=== PATIENT | female | born 1945 | race Two or more races ===

== ENCOUNTER 2020-01-29 13:03 | Outpatient (REF) | payer MEDICARE, SELFPAY ==
--- NOTE | 2020-01-29 13:27 | MM_ITS ---
EXAMINATION: MM SCREENING DIGITAL BREAST TOMOSYNTHESIS, BILATERAL CLINICAL INFORMATION: Screening. Asymptomatic. The lifetime risk of breast cancer based on the Tyrer-Cuzick Model is under 2%. COMPARISON: Mammography: 02/10/2018, 02/05/2017 TECHNIQUE: Digital breast tomosynthesis is performed in both the craniocaudal and mediolateral oblique views along with computer-aided detection (CAD). Synthesized 2D images are generated from the tomosynthesis. Additional left MLO and exaggerated left CC views are provided. FINDINGS: There are scattered areas of fibroglandular density (ACR BI-RADS breast composition Category b). There are no significant masses, abnormal calcifications, or other abnormalities. There is a pacemaker generator overlying and obscuring the upper left breast and axilla on the MLO views. Scattered bilateral vascular and some punctate round calcifications are again seen in both breasts. No significant changes. MM/MM tomosynthesis screening BI IMPRESSION: No significant changes from prior studies. ASSESSMENT: BI-RADS 2: Benign RECOMMENDATION: Routine annual mammography screening. This patient's information was entered into a reminder system with a target due date for their next mammogram.
== END 2020-01-29 13:04 | disposition home or self-care (01) ==
LOC: HO.MAMMO 13:03
PROVIDERS: PCP Nurse Practitioner Family; Visit Provider Nurse Practitioner Family
DX: Z12.31 Encounter for screening mammogram for malignant neoplasm of breast (principal)
CPT/HCPCS: 77063; 77067

== ENCOUNTER 2020-02-20 07:49 | Outpatient (REF) | payer MEDICARE, SELFPAY | END 2020-02-20 07:50 | disposition home or self-care (01) | LOC: HO.LAB 07:49 | PROVIDERS: PCP Nurse Practitioner Family; Visit Provider Internal Medicine | DX: Z20.828 Contact with and (suspected) exposure to other viral communicable diseases (principal) | CPT/HCPCS: C9803; U0003 ==

== ENCOUNTER 2020-05-31 10:08 | Outpatient (REF) | payer MEDICARE, SELFPAY ==
[2020-05-31 10:33] LABS: MANUAL DIFF FLAG NO
[2020-05-31 10:38] LABS: Basophils Percent Auto 0.3 % (0-2); Eosinophils Absolute Auto 0.1 X10*3/uL (0.0-0.4); Eosinophils Percent Auto 0.8 % (0-4); Hemoglobin 11.5 g/dl (12.0-16.0); Imm Gran Abs Auto 0.01 X10*3/uL (0.00-0.03); Imm Gran Pct Auto 0.2 % (0.0-0.4); Lymphocytes Absolute Auto 2.5 X10*3/uL (1.2-4.9); Lymphocytes Percent Auto 38.8 % (20-40); Mean Corpuscular HGB Conc 31.1 g/dl (31.0-35.0); Mean Corpuscular Hemoglobin 29.3 pg (27.0-33.0); Mean Corpuscular Volume 94.1 fL (80-98); Monocytes Absolute Auto 0.5 X10*3/uL (0.1-1.2); Monocytes Percent Auto 7.2 % (2-11); Neutrophils Absolute Auto 3.4 X10*3/uL (2.0-8.3); Neutrophils Percent Auto 52.7 % (45-73); Platelet Count 216 X10*3/uL (160-400); Red Blood Count 3.93 X10*6/uL (4.20-5.50); Red Cell Distribution Width 11.9 % (11.0-16.0); White Blood Count 6.4 X10*3/uL (4.8-10.8)
[2020-05-31 11:55] LABS: Glucose Urine UA NEG (NEG); Leukocyte Esterase Urine NEG (NEG); Nitrite Urine NEG (NEG); PH 5.5 (5.0-8.0); Specific Gravity - Urine 1.025 (1.005-1.025); Urine Blood NEG (NEG); Urine Ketones NEG (NEG); Urine Protein NEG (NEG-TRACE)
[2020-05-31 11:59] LABS: Appearance Urine CLEAR; Color Urine YELLOW
[2020-05-31 12:12] LABS: RBC Urine 0 /HPF (0); WBC Urine 0 /HPF (0-4)
[2020-05-31 12:13] LABS: Mucus Urine 1+ /LPF; Squamous Epithelial Cell Urine 1+ /LPF
[2020-05-31 12:32] LABS: Anion Gap 16 (12-20); Blood Urea Nitrogen 16 mg/dL (9-16); Carbon Dioxide 24 mmol/L (22-29); Chloride 109 mmol/L (96-108); Estimated Glomerular Filt Rate 52; Glucose Fasting 156 mg/dL (60-99); Potassium 5.4 mmol/L (3.3-5.1); Sodium 144 mmol/L (135-145)
== END 2020-05-31 10:09 | disposition home or self-care (01) ==
LOC: HO.LAB 10:08
PROVIDERS: PCP Nurse Practitioner Family; Visit Provider Nurse Practitioner Family
DX: M15.3 Secondary multiple arthritis (principal); E11.9 Type 2 diabetes mellitus without complications; N39.0 Urinary tract infection, site not specified
CPT/HCPCS: 36415; 80048; 81001; 82043; 85025

== ENCOUNTER 2021-01-30 15:37 | Outpatient (REF) | payer MEDICARE, SELFPAY ==
--- NOTE | ~2021-01-30 | XR_ITS ---
EXAMINATION: XR FOOT, RIGHT CLINICAL INFORMATION: M79.89 - Other specified soft tissue disorders. Pain mid dorsal foot. COMPARISON: Radiographs right ankle 06/30/2013 TECHNIQUE: AP, lateral, and oblique views of the right foot. FINDINGS: There is no visible acute or healing fracture, dislocation, or destructive process. There is long segment distal Achilles with benign mineralization 2.7 cm in length consistent with calcific tendinosis. There is short calcification in region of proximal plantar fascia as well. The midfoot and forefoot shows no focal joint narrowing or erosive changes. There is a small bunion adjacent to medial side first MTP. XR/XR foot RT 2V IMPRESSION: 1. No fracture or destructive process. 2. 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
== END 2021-01-30 15:38 | disposition home or self-care (01) ==
LOC: HO.XRAY 15:37
PROVIDERS: PCP Physician Assistant; Visit Provider Physician Assistant
DX: M79.89 Other specified soft tissue disorders (principal)
CPT/HCPCS: 73620

== ENCOUNTER 2021-04-11 15:11 | Outpatient (REF) | payer MEDICARE, SELFPAY ==
--- NOTE | ~2021-04-11 | MM_ITS ---
EXAMINATION: MM SCREENING DIGITAL BREAST TOMOSYNTHESIS, BILATERAL CLINICAL INFORMATION: Screening. Asymptomatic. The lifetime risk of breast cancer based on the Tyrer-Cuzick Model is 4%. COMPARISON: Mammography: 01/29/2020, 02/10/2018, 02/05/2017 TECHNIQUE: Digital breast tomosynthesis is performed in both the craniocaudal and mediolateral oblique views along with computer-aided detection (CAD). Synthesized 2D images are generated from the tomosynthesis. Additional left MLO view is provided. FINDINGS: There are scattered areas of fibroglandular density (ACR BI-RADS breast composition Category b). There are no significant masses, abnormal calcifications, or other abnormalities. Parenchymal pattern is similar to prior studies. There is no developing density or architectural abnormality. There is a pacemaker generator overlying the left axilla on initial MLO view. Again, there are numerous bilateral vascular and punctate and some ductal secretory calcifications. The visualized axilla are unremarkable. No significant changes. Small dermal lesion again noted overlying the posterior medial right breast. MM/MM tomosynthesis screening BI IMPRESSION: No mammographic evidence of malignancy. ASSESSMENT: BI-RADS 2: Benign RECOMMENDATION: Routine annual mammography screening. This patient's information was entered into a reminder system with a target due date for their next mammogram.
== END 2021-04-11 15:12 | disposition home or self-care (01) ==
LOC: HO.MAMMO 15:11
PROVIDERS: PCP Physician Assistant; Visit Provider Physician Assistant
DX: Z12.31 Encounter for screening mammogram for malignant neoplasm of breast (principal)
CPT/HCPCS: 77063; 77067

== ENCOUNTER 2021-07-28 09:01 | Outpatient (REF) | payer OTHER, SELFPAY ==
[2021-07-28 09:45] LABS: Hemoglobin 11.9 g/dl (12.0-16.0); Mean Corpuscular HGB Conc 33.1 g/dl (31.0-35.0); Mean Corpuscular Hemoglobin 29.9 pg (27.0-33.0); Mean Corpuscular Volume 90.5 fL (80.0-98.0); Mean Platelet Volume 10.2 fL (9.4-12.3); Platelet Count 195 X10*3/uL (160-400); Red Blood Count 3.98 X10*6/uL (4.20-5.50); Red Cell Distribution Width 11.9 % (11.0-16.0); White Blood Count 5.6 X10*3/uL (4.8-10.8)
[2021-07-28 09:53] LABS: Estimated Average Glucose 258 mg/dL; Hemoglobin A1c % 10.6 %
[2021-07-28 10:08] LABS: Alanine Aminotransferase 12 U/L (0-31); Albumin Level 4.3 g/dL (3.5-5.0); Alkaline Phosphatase 66 U/L (39-117); Anion Gap 12 (12-20); Aspartate Amino Transferase 12 U/L (5-31); Bilirubin Total 0.9 mg/dL (0.0-1.0); Blood Urea Nitrogen 16 mg/dL (9-16); Calcium 9.8 mg/dL (8.4-10.2); Carbon Dioxide 25 mmol/L (22-29); Chloride 107 mmol/L (96-108); Cholesterol 128 mg/dL; Estimated Glomerular Filt Rate 50; Glucose Fasting 221 mg/dL (60-99); HDL Cholesterol 40 mg/dL; Iron 76 mcg/dL (30-160); LDL Cholesterol Calculated 50 mg/dl; Percent Iron Saturation 19 % (15-50); Potassium 4.8 mmol/L (3.3-5.1); Sodium 139 mmol/L (135-145); Total Iron Binding Capacity 408 mcg/dL (228-428); Triglycerides 190 mg/dL; Unsaturated Iron Binding 332 ug/dL
[2021-07-28 10:29] LABS: TSH reflex Free T4 0.63 uIU/mL (0.32-4.0)
[2021-07-28 11:37] LABS: Creatinine Urine 233.58 mg/dL; Microalbum/Creatinine Ratio Ur 63.3 ug/mg cr
== END 2021-07-28 09:02 | disposition home or self-care (01) ==
LOC: HO.LAB 09:01
PROVIDERS: Absent Provider Nurse Practitioner Family; PCP Physician Assistant; Visit Provider Physician Assistant
DX: D50.9 Iron deficiency anemia, unspecified (principal); E11.9 Type 2 diabetes mellitus without complications; E78.2 Mixed hyperlipidemia; Z79.4 Long term (current) use of insulin
CPT/HCPCS: 36415; 80053; 80061; 82043; 83036; 83540; 84443; 85027

== ENCOUNTER 2022-09-10 11:03 | Outpatient (REF) | payer OTHER, SELFPAY ==
[2022-09-10 12:08] LABS: Hematocrit 36.7 % (37.0-47.0); Hemoglobin 11.8 g/dl (12.0-16.0); Mean Corpuscular HGB Conc 32.2 g/dl (31.0-35.0); Mean Corpuscular Hemoglobin 29.3 pg (27.0-33.0); Mean Corpuscular Volume 91.1 fL (80.0-98.0); Mean Platelet Volume 10.8 fL (9.4-12.3); Platelet Count 212 X10*3/uL (160-400); Red Blood Count 4.03 X10*6/uL (4.20-5.50); Red Cell Distribution Width 12.3 % (11.0-16.0)
[2022-09-10 12:36] LABS: Alanine Aminotransferase 12 U/L (0-31); Albumin Level 4.6 g/dL (3.5-5.0); Alkaline Phosphatase 62 U/L (39-117); Anion Gap 17 (12-20); Aspartate Amino Transferase 16 U/L (5-31); Blood Urea Nitrogen 24 mg/dL (9-16); Calcium 10.6 mg/dL (8.4-10.2); Carbon Dioxide 20 mmol/L (22-29); Chloride 110 mmol/L (96-108); Cholesterol 124 mg/dL; Estimated Glomerular Filt Rate 41; Glucose Fasting 160 mg/dL (60-99); HDL Cholesterol 48 mg/dL; LDL Cholesterol Calculated 48 mg/dl; Potassium 5.6 mmol/L (3.3-5.1); Sodium 141 mmol/L (135-145); Total Protein 7.6 g/dL (6.5-8.0); Triglycerides 144 mg/dL
[2022-09-10 12:49] LABS: TSH reflex Free T4 0.53 uIU/mL (0.32-4.0)
== END 2022-09-10 11:04 | disposition home or self-care (01) ==
LOC: HO.LAB 11:03
PROVIDERS: PCP Physician Assistant; Visit Provider Physician Assistant
DX: E11.65 Type 2 diabetes mellitus with hyperglycemia (principal); I10 Essential (primary) hypertension; E78.2 Mixed hyperlipidemia; Z79.4 Long term (current) use of insulin
CPT/HCPCS: 36415; 80053; 80061; 82043; 84443; 85027

== ENCOUNTER 2022-09-27 14:25 | Outpatient (REF) | payer OTHER, SELFPAY ==
[2022-09-27 16:39] LABS: Anion Gap 13 (12-20); Blood Urea Nitrogen 20 mg/dL (9-16); Calcium 9.9 mg/dL (8.4-10.2); Carbon Dioxide 26 mmol/L (22-29); Chloride 106 mmol/L (96-108); Estimated Glomerular Filt Rate 50; Glucose Random 229 mg/dL (60-115); Potassium 4.7 mmol/L (3.3-5.1); Sodium 140 mmol/L (135-145)
== END 2022-09-27 14:26 | disposition home or self-care (01) ==
LOC: HO.LAB 14:25
PROVIDERS: PCP Physician Assistant; Visit Provider Physician Assistant
DX: E87.5 Hyperkalemia (principal)
CPT/HCPCS: 36415; 80048

== ENCOUNTER → 2022-11-07 11:15 | Outpatient (BNV) | payer OTHER, SELFPAY | PROVIDERS: PCP Physician Assistant; Visit Provider Radiology Diagnostic Radiology | DX: Z12.31 Encounter for screening mammogram for malignant neoplasm of breast (principal) | CPT/HCPCS: 77063; 77067 ==

== ENCOUNTER 2022-11-07 11:18 | Outpatient (REF) | payer OTHER, SELFPAY ==
--- NOTE | ~2022-11-07 | MM_ITS ---
EXAMINATION: MM SCREENING DIGITAL BREAST TOMOSYNTHESIS, BILATERAL CLINICAL INFORMATION: Screening. Asymptomatic. COMPARISON: Mammography: This study is compared with prior exams dating back to 2017. TECHNIQUE: Digital breast tomosynthesis is performed in both the craniocaudal and mediolateral oblique views along with computer-aided detection (CAD). Synthesized 2D images are generated from the tomosynthesis. FINDINGS: There are scattered areas of fibroglandular density (ACR BI-RADS breast composition Category b). In the 12:00 position of the right breast, anterior depth, is a small group of calcification for which additional mammographic imaging magnification is advised. There are no other significant findings in the remainder of the right breast. In the left breast, there are no significant masses, abnormal calcifications, or other abnormalities. MM/MM tomosynthesis screening BI IMPRESSION: Right breast calcifications warrant additional mammographic imaging magnification. No mammographic signs of malignancy left breast. ASSESSMENT: BI-RADS BI-RADS 0 - Incomplete: Needs additional Imaging. RECOMMENDATION: Additional views of the right breast Radiology department staff will contact the patient for additional imaging. Additional Imaging required This examination should not preclude the clinical evaluation of a suspicious palpable abnormality. This patient's information was entered into a reminder system with a target due date for their next mammogram.
== END 2022-11-07 11:19 | disposition home or self-care (01) ==
LOC: HO.MAMMO 11:18
PROVIDERS: PCP Physician Assistant; Visit Provider Physician Assistant
DX: Z12.31 Encounter for screening mammogram for malignant neoplasm of breast (principal)
CPT/HCPCS: 77063; 77067

== ENCOUNTER 2022-11-26 08:41 | Outpatient (REF) | payer OTHER, SELFPAY ==
--- NOTE | ~2022-11-26 | MM_ITS ---
EXAMINATION: MM DIAGNOSTIC DIGITAL MAMMOGRAPHY, RIGHT CLINICAL INFORMATION: Follow-up for microcalcifications seen upper anterior right breast on screening examination. COMPARISON: Mammography: 11/07/2022. 04/11/2021. Priors dating back to 2014. TECHNIQUE: Digital mammography is performed in the following views: 2-D spot magnification right CC and ML views. FINDINGS: There are scattered areas of fibroglandular density (ACR BI-RADS breast composition Category b). There is a small tight grouping of punctate round calcifications, very faint, in the upper medial quadrant of the right breast, anterior one third. They lie Approximately 4 cm from the nipple. No significant pleomorphism, branching, or linear forms. No evidence of ductal distribution. In retrospect, these can be seen dating back to 2015 although are so small and faint, exact comparison is difficult without old magnification views. These have a probably benign morphology. There are extensive vascular calcifications throughout the right breast. No new suspicious finding. Results were provided to the patient at time of visit by the technologist. MM/MM added views RT IMPRESSION: Small extremely fine punctate grouped microcalcifications in the upper medial right breast approximate 4 cm from the nipple, with a probably benign morphology. Six-month interval follow-up diagnostic mammography of the right breast recommended to include standard magnification views. ASSESSMENT: BI-RADS BI-RADS 3 - Probably benign finding(s) - 6 month follow-up suggested RECOMMENDATION: 6 Month F/U This patient's information was entered into a reminder system with a target due date for their next mammogram.
== END 2022-11-26 08:42 | disposition home or self-care (01) ==
LOC: HO.MAMMO 08:41
PROVIDERS: PCP Physician Assistant; Visit Provider Physician Assistant
DX: R92.1 Mammographic calcification found on diagnostic imaging of breast (principal)
CPT/HCPCS: 77065

== ENCOUNTER → 2022-11-26 09:00 | Outpatient (BNV) | payer OTHER, SELFPAY | PROVIDERS: PCP Physician Assistant; Visit Provider Radiology Diagnostic Radiology | DX: R92.8 Other abnormal and inconclusive findings on diagnostic imaging of breast (principal) | CPT/HCPCS: 77065 ==

== ENCOUNTER 2023-03-18 10:35 | Outpatient (AMB) | payer OTHER, SELFPAY ==
[2023-03-18 10:48] VITALS: BP 132/62; PULSE 64; RESP 17; BMI 18.9
--- NOTE | 2023-03-18 10:48 | MHC.PC.OV ---
Vital Signs 03/18/23 10:48 Height 4 ft 11 in Weight 93 lb 8 oz BMI 18.9 BP 132/62 Blood Pressure Location Lt brachial Position Sitting Respiration 17 Pulse 64 Pulse Source Palpation Intake Visit Reasons: F/U DM Intake Note: Patient is here to follow up on DMII. Pt's daughter requested the Placard form. Hot Dip Tinning Supervisor Required: No Accompanied by: Daughter Allergies Iodinated Contrast Media [IV CONTRAST] Allergy (Intermediate, Verified 03/18/23 11:07) SHORTNESS OF BREATH latex [LATEX] Allergy (Intermediate, Verified 03/18/23 11:07) RASH Medication List - Last Reconciled 03/18/23 by Que Good PA-C acetaminophen ER 650 mg PO Q6H PRN 30 days albuterol sulfate 90 mcg/actuation 2 puffs PO Q4-6H PRN aspirin 81 mg PO DAILY blood sugar diagnostic (FreeStyle Lite Strips) TESTING ONCE A DAY blood-glucose meter (FreeStyle Lite Meter kit) As directed clopidogrel 75 mg PO DAILY cyclobenzaprine 10 mg PO BEDTIME 30 days [diabetic shoes with inserts As directed] dicyclomine 20 mg PO TID PRN gabapentin 300 mg PO TID 30 days insulin glargine (Lantus Solostar U-100 Insulin) 44 units (0.44 mL) subcut QAM 30 days lancets (FreeStyle Lancets) testing once per day lisinopril 5 mg PO DAILY metformin 1,000 mg PO BIDWMEAL metoprolol succinate ER 12.5 mg (1/2 x 25 mg) PO DAILY 90 days omega-3 fatty acids (Fish Oil Concentrate) 1,000 mg PO DAILY pen needle, diabetic (BD Ultra-Fine Aylin Pen Needle) test once per day simvastatin 40 mg PO BEDTIME Tobacco use date assessed: 03/18/23 Fall risk assessment: No Falls in past year Last assessed Fall Risk: 03/18/23 Dental Screening Dental Screen Date: 03/18/23 Did you have a dental visit in the last 12 months?: No Did you have a dental problem in the last 6 months where you did not have access to dental care?: No Was dental information given to patient?: Patient declined HPI F/U DM HPI Details Patient is a 77 year female here today for follow-up visit.? Patient is Cypriot-speaking only to which most of history came from daughter. ?Patient has a past medical history significant for hypertension, type 2 diabetes, coronary artery disease, ICD placed, hyperlipidemia. DMII: Reports Blood sugars have been stable at home. Today's A1c at 7.6 which has improved from previous. Her insulin doses have been increased. No reports of hypoglycemic events. .. HTN: Does check BP at home and report blood pressure have been stable.? Denies any chest discomfort, shortness of breath, palpitations or headaches. She does have microalbuminuria. She is followed by elevating grader operator .. CAD:? Patient is followed by dog food shredder operator at [facility] ( Dr Pruitt) . Does have a ICD placement? .Continues on beta-latoya, statin and dual anti-platelet therapy.? No reports of overt bleeding [facility] Medical History Diabetes Recurrent UTI Osteoarthritis Surgical History H/O heart artery stent History of pacemaker H/O angioplasty History of bilateral cataract extraction S/P trigger finger release History of tubal ligation Family History Father Past heart attack Mother Throat cancer Smoker Brother Past heart attack Brother Lung cancer Daughter Hypertension CHF (congestive heart failure) Son Diabetes Social History Housing: Apartment Alcohol intake: never Patient Tobacco Use Status: Never used Tobacco Tobacco use type: Cigarette e-Cigarette/Vaping Use: Never Used Second Hand Smoke Exposure: No service: No Current occupational status: disabled Cognitive needs: Yes Hearing needs: No Vision needs: No Questionnaire PHQ-9 Over the last 2 weeks, how often have you been bothered by any of the following problems? 1. Little interest or pleasure in doing things: not at all 2. Feeling down, depressed, or hopeless: not at all 3. Trouble falling or staying asleep, or sleeping too much: not at all 4. Feeling tired or having little energy: not at all 5. Poor appetite or overeating: not at all 6. Feeling bad about yourself - or that you are a failure or have let yourself or your family down: not at all 7. Trouble concentrating on things, such as reading the newspaper or watching television: not at all 8. Moving or speaking so slowly that other people could have noticed. Or the opposite - being so fidgety or restless that you have been moving around a lot more than usual: not at all 9. Thoughts that you would be better off or of hurting yourself in some way: not at all Total score: 0 Depression Screening Interpretation: Negative Depression Screening Done: Yes 48054 - PHQ-9 Billing: Yes Source: Developed by Drs. Josh Mensah, Rebeca Caruso, Elan Akhtar and colleagues, with an educational ha from [facility]. Thrive Questionnaire Date Thrive assessed: 03/18/23 I am a: Patient What is your living situation today?: I have a steady place to live Within the past 12 months, did the food you bought not last and you didn't have the money to get more?: Never true Within the past 12 months, did you worry whether your food would run out before you got money to buy more?: Never true Do you have trouble paying for medicines?: No Do you have trouble getting transportation to medical appointments?: No Do you have trouble paying your heating and electricity bill?: No Do you have trouble taking care of your child, family member or friend?: No Do you have trouble with day-to-day activities such as bathing, preparing meals, shopping, managing finances, etc.?: No Are you currently unemployed and looking for a job?: No Are you interested in more education?: No Please select the resources that you would like help with: None Currently or been in a relationship where the following occur: no concerns reported AUDIT C Alcohol Use Questionnaire (AUDIT-C) 1. How often do you have a drink containing alcohol?: Never 3. How often do you have six or more drinks on one occasion?: Never Total Score: 0 KAI-7 AMB Questionnaire KAI-7 Date KAI - 7 assessed: 03/18/23 Feeling nervous, anxious, or on edge: 0 = Not at all Not being able to stop or control worryin = Not at all Worrying too much about different things: 0 = Not at all Trouble relaxin = Not at all Being so restless that it is hard to sit still: 0 = Not at all Becoming easily annoyed or irritable: 0 = Not at all Feeling afraid as if something awful might happen: 0 = Not at all Total KAI-7 score (0-4 normal; 5-9 mild; 10-14 moderate; 15-21 severe): 0 Source: Developed by Drs. Josh Mensah, Rebeca Caruso, Elan Akhtar and colleagues, with an educational ha from [facility]. KAI-7 Assessment Billing KAI-7 Assessment Tool: KAI-7 Assessment 12790 Review of Systems Const Denies headache(s) Eyes Denies loss of vision ENT Denies vertigo, Denies dizziness, Denies headache(s) and Denies sore throat Card Denies chest pain, Denies leg edema and Denies lightheadedness Resp Denies cough, Denies hemoptysis and Denies wheezing GI Denies abdominal pain, Denies melena, Denies constipation, Denies diarrhea and Denies vomiting Denies urinary frequency, Denies dysuria and Denies urinary urgency Musc Denies arthralgias, Denies joint swelling, Denies numbness and Denies tingling Neuro Denies Abnormal speech present, Denies behavioral changes, Denies vertigo, Denies dizziness, Denies headache(s), Denies loss of vision, Denies memory loss, Denies numbness and Denies tingling Psych Denies anxiety, Denies behavioral changes, Denies depression, Denies memory loss and Denies panic attacks [place]win/Lymph Denies easy bleeding and Denies easy bruising Aller/Immun Denies wheezing Physical exam (Primary Care) Vital Signs: Last Vital Signs Pulse 64 03/18/23 10:48 Resp 17 03/18/23 10:48 BP 132/62 03/18/23 10:48 BMI result Body Mass Index 18.9 Tobacco/Smoking Status: Tobacco use Status Tobacco use date assessed 03/18/23 03/18/23 11:01 Patient Tobacco Use Status Never used Tobacco 03/18/23 10:48 Tobacco use type Cigarette 03/18/23 10:48 e-Cigarette/Vaping Use Never Used 03/18/23 10:48 PHQ-9: PHQ-9 Score PHQ-9: Total score 0 03/18/23 11:01 Depression Screening Interpretation: Negative Thrive Assessment: Date of Thrive Assessment Date Thrive assessed 03/18/23 03/18/23 10:58 Currently or been in a relationship where the following occur: no concerns reported Const General: healthy appearing, no acute distress, alert and awake Nutritional Appearance: well nourished Orientation/consciousness: oriented to person, oriented to place and oriented to time HENMT Ears: TM's normal bilaterally General nose exam: Normal nasal mucous membranes and turbinates present Eyes Conjunctivae: conjunctivae normal Sclerae: sclerae normal Pupils: Equal, round and reactive pupils present Neck Neck: Yes no lymphadenopathy and Yes no JVD Thyroid: Thyroid normal Carotids: no bruits Resp Effort & Inspection: normal respiratory effort and not tachypneic Auscultation: no crackles, no rales, no rhonchi and no wheezes Cardio Rate: regular rate Rhythm: regular rhythm Heart sounds: no murmurs and normal S1 and S2 GI Palpation (GI): Soft to palpation, nontender, no hepatomegaly and no splenomegaly Auscultation: normal bowel sounds Skin General skin exam: no rashes or lesions noted and dry skin Neuro General: oriented to person, oriented to place and oriented to time Cranial nerves: Yes Equal, round and reactive pupils present Speech: No Abnormal speech present Gait exam (Neuro): Normal gait present Motor exam (neuro): no tremor noted Extrem Right upper extremity: full ROM Left upper extremity: full ROM Right lower extremity: full ROM; no edema Left lower extremity: full ROM; no edema Psych Mental Status: mental status grossly normal Speech and movement: Normal speech and movement present Affect: normal affect Attitude: cooperative Thought process: Normal thought process present Results AMB Hemoglobin A1c AMB Hemoglobin A1c 7.6 % Last Edit by BLAYNE Contreras on 03/18/23 11:08 Assessment and Plan Assessment & Plan (1) DMII (diabetes mellitus, type 2): Code(s): E11.9 - Type 2 diabetes mellitus without complications Qualifiers: Diabetes mellitus mimeograph operator insulin use: with mimeograph operator use Diabetes mellitus complication status: with hyperglycemia Qualified Code(s): E11.65 - Type 2 diabetes mellitus with hyperglycemia; Z79.4 - device engineer (current) use of insulin Plan: Patient's diabetes about the control with A1c today 7.6 which has improved from previous. Patient has noted some weight loss since last office visit, could be due to high-dose metformin thus will reduce her dose to 500 b.i.d.. Goal A1c is to be below 7.5 due to Agent correlated ease. (2) HLD (hyperlipidemia): Code(s): E78.5 - Hyperlipidemia, unspecified Qualifiers: Hyperlipidemia type: mixed hyperlipidemia Qualified Code(s): E78.2 - Mixed hyperlipidemia Plan: Patient's most recent fasting lipid panel acceptable with LDL below 70. Continues on statin therapy without side effect. Goal LDL to be below 70 (3) CAD (coronary artery disease): Code(s): I25.10 - Atherosclerotic heart disease of [place] coronary artery without angina pectoris Qualifiers: Coronary Disease-Associated Artery/Lesion type: [place] artery [place] vs. transplanted heart: [place] heart Associated angina: without angina Qualified Code(s): I25.10 - Atherosclerotic heart disease of [place] coronary artery without angina pectoris Plan: Patient followed by Cardiology annually. Continues on dual anti-platelet therapy and statin therapy with goal LDL to be below 70 (4) ICD (implantable cardioverter-defibrillator) in place: Code(s): Z95.810 - Presence of automatic (implantable) cardiac defibrillator Plan: Again patient followed by Cardiology annually in gets her diffuse related checked. Orders: Orders AMB Hemoglobin A1c Today E11.9 - Type 2 diabetes mellitus without complications Comprehensive [place]. Panel Fast Today I10 - Essential (primary) hypertension IRON PROFILE Today D50.9 - Iron deficiency anemia, unspecified Lipid Panel Today E78.2 - Mixed hyperlipidemia Microalbumin, Random (w Creat) Today I10 - Essential (primary) hypertension Complete Blood Count no Diff Today D50.9 - Iron deficiency anemia, unspecified Medications: New nitroglycerin do not exceed 3 doses per episode 0.4 mg sublingual Q5M 30 days PRN 10 tabs 0RF chest pain I25.10 - Atherosclerotic heart disease of [place] coronary artery without angina pectoris Coding Level of Care Code Est Pt Level 4 (99952) Diagnoses Type 2 diabetes mellitus with hyperglycemia, with long-term current use of insulin E11.65; Z79.4 Diabetes mellitus mimeograph operator insulin use: with mimeograph operator use Diabetes mellitus complication status: with hyperglycemia Mixed hyperlipidemia E78.2 Hyperlipidemia type: mixed hyperlipidemia Coronary artery disease involving [place] coronary artery of [place] heart without angina pectoris I25.10 Coronary Disease-Associated Artery/Lesion type: [place] artery [place] vs. transplanted heart: [place] heart Associated angina: without angina ICD (implantable cardioverter-defibrillator) in place Z95.810 Additional Codes KAI-7 Assessment Billing - KAI-7 Assessment Tool: KAI-7 Assessment [id number] ([id number])
== END 2023-03-18 11:26 | disposition home or self-care (01) ==
PROVIDERS: PCP Physician Assistant; Visit Provider Physician Assistant
DX: E11.65 Type 2 diabetes mellitus with hyperglycemia (principal); Z79.4 Long term (current) use of insulin; E78.2 Mixed hyperlipidemia; I25.10 Atherosclerotic heart disease of native coronary artery without angina pectoris; Z95.810 Presence of automatic (implantable) cardiac defibrillator; E11.9 Type 2 diabetes mellitus without complications
CPT/HCPCS: 83036; 99214

== ENCOUNTER 2023-05-29 10:42 | Outpatient (REF) | payer OTHER, SELFPAY ==
--- NOTE | ~2023-05-29 | MM_ITS ---
EXAMINATION: MM DIAGNOSTIC DIGITAL BREAST TOMOSYNTHESIS, LEFT CLINICAL INFORMATION: Follow-up calcifications 12:00 axis left breast COMPARISON: Mammography: 11/26/2022, 11/07/2022 (BI-RADS 0), 04/11/2021. Priors dating back to 2014. TECHNIQUE: Digital right breast tomosynthesis is performed in both the craniocaudal and mediolateral oblique views along with computer-aided detection (CAD). Synthesized 2D images are generated from the tomosynthesis. In addition, 2-D spot magnification right CC and ML views were also obtained. FINDINGS: There are scattered areas of fibroglandular density (ACR BI-RADS breast composition Category b). There is a small tight grouping of punctate round calcifications, very faint, in the upper medial quadrant of the right breast, anterior one third. They lie Approximately 4 cm from the nipple. No significant pleomorphism, branching, or linear forms. No evidence of ductal distribution. They are unchanged in number, morphology, and distribution. In retrospect, these can be seen dating back to 2015 although are so small and faint, exact comparison is difficult without old magnification views. These have a probably benign morphology. There are extensive vascular calcifications in the right breast. There are no developing masses or regions of architectural distortion. MM/MM tomosynthesis diagnostic RT IMPRESSION: There are no findings suspicious for malignancy in the right breast. Punctate grouped calcifications at the 12:00 axis are stable, and six-month interval follow-up diagnostic mammography recommended to ensure stability. ASSESSMENT: BI-RADS BI-RADS 3 - Probably benign finding(s) - 6 month follow-up suggested RECOMMENDATION: 6 Month F/U Results were provided to the patient at time of visit by the technologist. This patient's information was entered into a reminder system with a target due date for their next mammogram.
== END 2023-05-29 10:43 | disposition home or self-care (01) ==
LOC: HO.MAMMO 10:42
PROVIDERS: PCP Physician Assistant; Visit Provider Physician Assistant
DX: R92.1 Mammographic calcification found on diagnostic imaging of breast (principal)
CPT/HCPCS: 77061; 77065

== ENCOUNTER → 2023-05-29 11:00 | Outpatient (BNV) | payer OTHER, SELFPAY | PROVIDERS: PCP Physician Assistant; Visit Provider Radiology Diagnostic Radiology | DX: R92.1 Mammographic calcification found on diagnostic imaging of breast (principal) | CPT/HCPCS: 77065; G0279 ==

== ENCOUNTER 2023-05-29 11:23 | Outpatient (AMB) | payer OTHER, SELFPAY ==
[2023-05-29 11:46] VITALS: BP 138/60; PULSE 96; O2SAT 97; BMI 18.3
--- NOTE | 2023-05-29 11:46 | A.OFFPC_ITS ---
Vital Signs 3 05/29/23 11:46 Height 4 ft 11 in Weight 90 lb 8 oz BMI 18.3 BP 138/60 Blood Pressure Location Lt brachial Position Sitting Pulse 96 Pulse Source Pulse Oximeter Pulse Oximetry (%) 97 Oxygen Delivery Method Room Air Intake Visit Reasons: Referral to Podiatry for left big toe injury. Allergies Iodinated Contrast Media [IV CONTRAST] Allergy (Intermediate, Verified 03/18/23 11:07) SHORTNESS OF BREATH latex [LATEX] Allergy (Intermediate, Verified 03/18/23 11:07) RASH Tobacco use date assessed: 03/18/23 HPI Referral to Podiatry for left big toe injury. 2 HPI0 Details Patient is a 69-year-old female here today for problem visit. Has been having left big toe pain due to an injury. Reports just after injury some swelling and redness of her foot that they have been using topical antibiotic for which has cleared the swelling and redness. Does have a left great toe thickened discolored have broken nail. Family's questioning the need to see a aqua ammonia operator [facility] Medical History Diabetes Recurrent UTI Osteoarthritis Surgical History H/O heart artery stent History of pacemaker H/O angioplasty History of bilateral cataract extraction S/P trigger finger release History of tubal ligation Family History Father Past heart attack Mother Throat cancer Smoker Brother Past heart attack Brother Lung cancer Daughter Hypertension CHF (congestive heart failure) Son Diabetes Social History Housing: Apartment Alcohol intake: never Patient Tobacco Use Status: Never used Tobacco Tobacco use type: Cigarette e-Cigarette/Vaping Use: Never Used Second Hand Smoke Exposure: No service: No Current occupational status: disabled Cognitive needs: Yes Hearing needs: No Vision needs: No Questionnaire Thrive Questionnaire Date Thrive assessed: 03/18/23 KAI-7 AMB Questionnaire KAI-7 Date KAI - 7 assessed: 03/18/23 Source: Developed by Drs. Josh Mensah, Rebeca Caruso, Elan Akhtar and colleagues, with an educational ha from [employer]. Review of Systems Const Denies headache(s) Eyes Denies loss of vision ENT Denies vertigo, Denies dizziness, Denies headache(s) and Denies sore throat Card Denies chest pain, Denies leg edema and Denies lightheadedness Resp Denies cough, Denies hemoptysis and Denies wheezing GI Denies abdominal pain, Denies melena, Denies constipation, Denies diarrhea and Denies vomiting Denies urinary frequency, Denies dysuria and Denies urinary urgency Musc Denies arthralgias, Denies joint swelling, Denies numbness and Denies tingling Neuro Denies Abnormal speech present, Denies behavioral changes, Denies vertigo, Denies dizziness, Denies headache(s), Denies loss of vision, Denies memory loss, Denies numbness and Denies tingling Psych Denies anxiety, Denies behavioral changes, Denies depression, Denies memory loss and Denies panic attacks Irwin/Lymph Denies easy bleeding and Denies easy bruising Aller/Immun Denies wheezing Physical exam (Primary Care) Vital Signs: Last Vital Signs Pulse 96 05/29/23 11:46 BP 138/60 05/29/23 11:46 Pulse Ox 97 05/29/23 11:46 Oxygen Delivery Method Room Air 05/29/23 11:46 BMI result Body Mass Index 18.3 Tobacco/Smoking Status: Tobacco use Status Tobacco use date assessed 03/18/23 05/29/23 11:49 Patient Tobacco Use Status Never used Tobacco 05/29/23 11:49 Tobacco use type Cigarette 05/29/23 11:49 e-Cigarette/Vaping Use Never Used 05/29/23 11:49 Thrive Assessment: Date of Thrive Assessment Date Thrive assessed 03/18/23 05/29/23 11:49 Const General: healthy appearing, no acute distress, alert and awake Nutritional Appearance: well nourished Orientation/consciousness: oriented to person, oriented to place and oriented to time HENMT Ears: TM's normal bilaterally General nose exam: Normal nasal mucous membranes and turbinates present Eyes Conjunctivae: conjunctivae normal Sclerae: sclerae normal Pupils: Equal, round and reactive pupils present Neck Neck: Yes no lymphadenopathy and Yes no JVD Thyroid: Thyroid normal Carotids: no bruits Resp Effort & Inspection: normal respiratory effort and not tachypneic Auscultation: no crackles, no rales, no rhonchi and no wheezes Cardio Rate: regular rate Rhythm: regular rhythm Heart sounds: no murmurs and normal S1 and S2 GI Palpation (GI): Soft to palpation, nontender, no hepatomegaly and no splenomegaly Auscultation: normal bowel sounds Skin General skin exam: no rashes or lesions noted and dry skin Neuro General: oriented to person, oriented to place and oriented to time Cranial nerves: Yes Equal, round and reactive pupils present Speech: No Abnormal speech present Gait exam (Neuro): Normal gait present Motor exam (neuro): no tremor noted Extrem Right upper extremity: full ROM Left upper extremity: full ROM Right lower extremity: full ROM; no edema Left lower extremity: full ROM; no edema Ankle/foot/toe images: 2 1. THICKENED DISCOLORED HAVE BROKEN GREAT TOENAIL Psych Mental Status: mental status grossly normal Speech and movement: Normal speech and movement present Affect: normal affect Attitude: cooperative Thought process: Normal thought process present Assessment and Plan Assessment & Plan (1) Katie onychomycosis: Code(s): B37.2 - Candidiasis of skin and nail Plan: Has right great toe fungal infection. Will supply with clotrimazole cream. Advised to do home nail care. Otherwise foot appears benign. Medications: New 2 clotrimazole 1% 1 appl topical BID 30 days 30 grams 3RF B37.2 - Candidiasis of skin and nail Coding Level of Care Code Est Pt Level 3 (03772) Diagnoses Katie onychomycosis B37.2
== END 2023-05-29 12:55 | disposition home or self-care (01) ==
PROVIDERS: PCP Physician Assistant; Visit Provider Physician Assistant
DX: B37.2 Candidiasis of skin and nail (principal)
CPT/HCPCS: 99213

== ENCOUNTER 2023-07-19 08:58 | Outpatient (REF) | payer OTHER, SELFPAY ==
--- NOTE | ~2023-07-19 | CT_ITS ---
EXAMINATION: CT HEAD WITHOUT CONTRAST CLINICAL INFORMATION: Progressively worsening memory impairment. COMPARISON: None available. TECHNIQUE: Contiguous axial imaging was performed from the skull base to vertex without intravenous administration of contrast. This CT examination was performed using dose optimization techniques as appropriate, variously including the following: *Automated exposure control *Adjustment of mA and/or kV according to patient size (this includes techniques or standardized protocols for targeted exams where dose is matched to indication/reason for exam; i.e. extremities or head) *Use of iterative reconstruction technique DLP: 589 mGy-cm FINDINGS: Moderate diffuse commensurate prominence of ventricles and sulci is noted. Nearly confluent patchy subcortical and periventricular white matter hypodensities are visualized. No intracranial hemorrhage, tumors or acute infarcts are noted. No disproportionate prominence of the temporal horns of the lateral ventricles. Bilateral lens replacements are noted. No significant opacification of the visualized paranasal sinuses, mastoid air cells and middle ear cavities. Chronic appearing dystrophic calcification is noted in the region of the cruciate ligaments at the level of C1-C2. Focal cortical and subcortical hypodensity having the appearance of chronic encephalomalacia related to a focal ischemic event is noted in the right superior parietal lobule. Similar focal set of findings is present in the left superior parietal lobule , images 51 and 54 of series 74 respectively. Moderate segmental calcific atherosclerosis of the cavernous portions of the internal carotid arteries is identified. CT/CT head/brain wo IV con IMPRESSION: *No acute intracranial abnormalities. *Moderate diffuse parenchymal volume loss the brain and moderate-marked chronic microangiopathic ischemic changes. 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 *Moderate segmental calcific atherosclerosis of the cavernous portions of the internal carotid arteries. *No intracranial tumors. No disproportionate prominence of the temporal horns of the lateral ventricles to specifically suggest disproportionate hippocampal volume loss. No evidence of normal pressure hydrocephalus.
== END 2023-07-19 08:59 | disposition home or self-care (01) ==
LOC: HO.CT 08:58
PROVIDERS: PCP Physician Assistant; Visit Provider Physician Assistant
DX: R41.3 Other amnesia (principal)
CPT/HCPCS: 70450

== ENCOUNTER 2023-07-26 08:44 | Outpatient (REF) | payer OTHER, SELFPAY ==
[2023-07-26 09:03] LABS: MANUAL DIFF FLAG NO
[2023-07-26 09:15] LABS: Basophils Percent Auto 0.2 % (0-2); Eosinophils Absolute Auto 0.1 X10*3/uL (0.0-0.4); Eosinophils Percent Auto 1.4 % (0-4); Hematocrit 34.8 % (37.0-47.0); Hemoglobin 11.1 g/dl (12.0-16.0); Imm Gran Abs Auto 0.01 X10*3/uL (0.00-0.03); Imm Gran Pct Auto 0.2 % (0.0-0.4); Lymphocytes Absolute Auto 2.3 X10*3/uL (1.2-4.9); Lymphocytes Percent Auto 45.8 % (20-40); Mean Corpuscular HGB Conc 31.9 g/dl (31.0-35.0); Mean Corpuscular Hemoglobin 29.9 pg (27.0-33.0); Mean Corpuscular Volume 93.8 fL (80.0-98.0); Monocytes Absolute Auto 0.4 X10*3/uL (0.1-1.2); Monocytes Percent Auto 8.7 % (2-11); Neutrophils Absolute Auto 2.2 x10*3/uL (2.0-8.3); Neutrophils Percent Auto 43.7 % (45-73); Platelet Count 199 X10*3/uL (160-400); Red Blood Count 3.71 X10*6/uL (4.20-5.50); Red Cell Distribution Width 12.3 % (11.0-16.0); White Blood Count 5.1 X10*3/uL (4.8-10.8)
[2023-07-26 09:29] LABS: Appearance Urine Clear; Color Urine Dark Yellow; Glucose Urine UA 100 mg/dL (Negative); Leukocyte Esterase Urine Small (1+) (Negative); Nitrite Urine Negative (Negative); Specific Gravity - Urine >= 1.030 (1.005-1.025); UMIC TRIGGER UA YES; Urine Blood Negative (Negative); Urine Ketones Trace mg/dL (Negative); Urine Protein Trace mg/dL (Neg-Trace)
[2023-07-26 09:49] LABS: Bacteria Urine None Seen (None Seen); RBC Urine 0-2 /HPF (0-2); WBC Urine 0-5 /HPF (0-5)
[2023-07-26 10:07] LABS: Albumin Level 4.3 g/dL (3.5-5.0); Anion Gap 15 (12-20); Blood Urea Nitrogen 22 mg/dL (9-16); Calcium 9.5 mg/dL (8.4-10.2); Carbon Dioxide 21 mmol/L (22-29); Chloride 108 mmol/L (96-108); Estimated Glomerular Filt Rate 44; Phosphorus 2.9 mg/dL (2.7-4.5); Potassium 4.3 mmol/L (3.3-5.1); Sodium 140 mmol/L (135-145)
[2023-07-26 10:11] LABS: Magnesium 1.4 mg/dL (1.6-2.6)
[2023-07-26 10:18] LABS: Vitamin D 25-OH Total 13.3 ng/mL (>30)
[2023-07-26 11:35] LABS: Creatinine Urine 233.74 mg/dL; Microalbum/Creatinine Ratio Ur 7.2 ug/mg cr (<30); Protein/Creatinine Ratio, Ur 0.09 (<0.2); Total Protein Urine Random 20 mg/dL (<12)
== END 2023-07-26 08:45 | disposition home or self-care (01) ==
LOC: HO.LAB 08:44
PROVIDERS: PCP Physician Assistant; Visit Provider Internal Medicine Nephrology
DX: E11.22 Type 2 diabetes mellitus with diabetic chronic kidney disease (principal); N18.31 Chronic kidney disease, stage 3a
CPT/HCPCS: 36415; 80051; 81001; 82040; 82043; 82306; 82310; 82565; 82570; 83735; 83970; 84100; 84156; 84520; 85025

== ENCOUNTER 2023-10-09 08:20 | Outpatient (REF) | payer OTHER, SELFPAY ==
[2023-10-09 09:19] LABS: Hematocrit 36.4 % (37.0-47.0); Hemoglobin 11.4 g/dl (12.0-16.0); Mean Corpuscular HGB Conc 31.3 g/dl (31.0-35.0); Mean Corpuscular Hemoglobin 29.4 pg (27.0-33.0); Mean Corpuscular Volume 93.8 fL (80.0-98.0); Mean Platelet Volume 10.4 fL (9.4-12.3); Platelet Count 213 X10*3/uL (160-400); Red Blood Count 3.88 X10*6/uL (4.20-5.50); Red Cell Distribution Width 12.2 % (11.0-16.0); White Blood Count 5.6 X10*3/uL (4.8-10.8)
[2023-10-09 09:43] LABS: Alanine Aminotransferase 7 U/L (0-31); Albumin Level 4.5 g/dL (3.5-5.0); Alkaline Phosphatase 59 U/L (39-117); Anion Gap 14 (12-20); Aspartate Amino Transferase 14 U/L (5-31); Bilirubin Total 0.7 mg/dL (0.0-1.0); Blood Urea Nitrogen 16 mg/dL (9-16); Calcium 10.4 mg/dL (8.4-10.2); Carbon Dioxide 24 mmol/L (22-29); Chloride 108 mmol/L (96-108); Cholesterol 108 mg/dL (<200); Estimated Glomerular Filt Rate 56; Glucose Fasting 151 mg/dL (60-99); HDL Cholesterol 43 mg/dL (>40); Iron 62 mcg/dL (30-160); LDL Cholesterol Calculated 29 mg/dL (<100); Percent Iron Saturation 18 % (15-50); Potassium 4.9 mmol/L (3.3-5.1); Sodium 141 mmol/L (135-145); Total Iron Binding Capacity 345 mcg/dL (228-428); Total Protein 7.2 g/dL (6.5-8.0); Triglycerides 182 mg/dL (<150); Unsaturated Iron Binding 283 ug/dL
[2023-10-09 11:40] LABS: Creatinine Urine 188.26 mg/dL; Microalbum/Creatinine Ratio Ur 13.2 ug/mg cr (<30)
== END 2023-10-09 08:21 | disposition home or self-care (01) ==
LOC: HO.LAB 08:20
PROVIDERS: PCP Physician Assistant; Visit Provider Physician Assistant
DX: D50.9 Iron deficiency anemia, unspecified (principal); E78.2 Mixed hyperlipidemia; I10 Essential (primary) hypertension
CPT/HCPCS: 36415; 80053; 80061; 82043; 82570; 83540; 85027

== ENCOUNTER 2023-10-15 09:56 | Outpatient (AMB) | payer OTHER, SELFPAY ==
[2023-10-15 10:30] VITALS: BP 134/60; PULSE 67; O2SAT 99; BMI 20.9
--- NOTE | 2023-10-15 10:30 | MHC.PC.OV ---
Vital Signs 10/15/23 10:30 Height 4 ft 6.72 in Weight 89 lb 2 oz BMI 20.9 BP 134/60 Blood Pressure Location Lt brachial Position Sitting Pulse 67 Pulse Source Pulse Oximeter Pulse Oximetry (%) 99 Oxygen Delivery Method Room Air Intake Visit Reasons: Annual Exam Allergies Iodinated Contrast Media [IV CONTRAST] Allergy (Intermediate, Verified 10/15/23 10:40) SHORTNESS OF BREATH latex [LATEX] Allergy (Intermediate, Verified 10/15/23 10:40) RASH Medication List - Last Reconciled 10/15/23 by Que Good PA-C acetaminophen ER 650 mg PO Q6H PRN 30 days albuterol sulfate 90 mcg/actuation 2 puffs PO Q4-6H PRN aspirin 81 mg PO DAILY [bed pads As directed] blood sugar diagnostic (FreeStyle Lite Strips) TESTING ONCE A DAY blood-glucose meter (FreeStyle Lite Meter kit) As directed [cane As directed] clopidogrel 75 mg PO DAILY clotrimazole 1% 1 appl topical BID 30 days cyclobenzaprine 10 mg PO BEDTIME 30 days [diabetic shoes with inserts As directed] [diapers As directed] dicyclomine 20 mg PO TID PRN gabapentin 300 mg PO TID 30 days insulin glargine (Lantus Solostar U-100 Insulin) 44 units (0.44 mL) subcut QAM 30 days lancets (FreeStyle Lancets) testing once per day [lift chair recliner As directed] lisinopril 5 mg PO DAILY metformin 1,000 mg PO BIDWMEAL metoprolol succinate ER 12.5 mg (1/2 x 25 mg) PO DAILY 90 days nitroglycerin 0.4 mg sublingual Q5M PRN 30 days omega-3 fatty acids (Fish Oil Concentrate) 1,000 mg PO DAILY pen needle, diabetic (BD Ultra-Fine Aylin Pen Needle) test once per day simvastatin 40 mg PO BEDTIME Tobacco use date assessed: 03/18/23 Dental Screening Dental Screen Date: 03/18/23 HPI Annual Exam HPI Details Patient is a 77 year female here today for routine annual physical. ? Patient is Fijian-speaking only to which most of history came from daughter. ?Patient has a past medical history significant for hypertension, type 2 diabetes, coronary artery disease, ICD placed, hyperlipidemia, lumbar spondylosis. DMII: Reports Blood sugars have been stable at home. Today's A1c at 7.0 which has improved from previous. She is compliant with both her insulin and metformin. No reports of hypoglycemic events. .. Lumbar spondylosis: Often uses a cane for ambulation assistance. Does have a lift chair needs new script and a new lift chair recliner due to currently not working. Will likely need physical therapy evaluation for lift chair recliner. .. HTN: Blood pressure today in office acceptable.? Denies any chest discomfort, shortness of breath, palpitations or headaches. She does have microalbuminuria. She is followed by nutrition helper .. CAD:? Patient is followed by welfare supervisor at [facility] ( Dr Pruitt) . Does have a ICD placement? .Continues on beta-latoya, statin and dual anti-platelet therapy.? No reports of overt bleeding. Colorectal cancer screening: Willing to do Cologuard Mammogram: Mammogram done in May 2023- needed repeat Vaccines: Up-to-date tetanus, shingles, pneumonia and COVID vaccine, need PCV PFSH Medical History Diabetes Recurrent UTI Osteoarthritis Surgical History H/O heart artery stent History of pacemaker H/O angioplasty History of bilateral cataract extraction S/P trigger finger release History of tubal ligation Family History Father Past heart attack Mother Throat cancer Smoker Brother Past heart attack Brother Lung cancer Daughter Hypertension CHF (congestive heart failure) Son Diabetes Social History Housing: Apartment Alcohol intake: never Patient Tobacco Use Status: Never used Tobacco Tobacco use type: Cigarette e-Cigarette/Vaping Use: Never Used Second Hand Smoke Exposure: No service: No Current occupational status: disabled Cognitive needs: Yes Hearing needs: No Vision needs: No Questionnaire Thrive Questionnaire Date Thrive assessed: 03/18/23 KAI-7 AMB Questionnaire KAI-7 Date KAI - 7 assessed: 03/18/23 Source: Developed by Drs. Josh Mensah, Rebeca Caruso, Elan Akhtar and colleagues, with an educational ha from [employer]. Review of Systems Const Denies body aches, Denies chills, Denies excessive sweating, Denies fatigue, Denies fever(s) and Denies headache(s) Eyes Denies blurry vision ENT Denies dysphagia, Denies vertigo, Denies dizziness, Denies headache(s), Denies hearing loss and Denies tinnitus Card Denies chest pain, Denies chest pain with activity, Denies syncope, Denies irregular heart rhythm and Denies dyspnea Resp Denies chest congestion, Denies cough, Denies hemoptysis, Denies dyspnea and Denies wheezing GI Denies abdominal pain, Denies melena, Denies hematochezia, Denies coffee ground emesis, Denies dysphagia, Denies diarrhea, Denies nausea and Denies vomiting Denies urinary frequency, Denies dysuria, Denies urinary hesitancy and Denies urinary urgency Musc Denies arthralgias, Denies limited range of motion, Denies muscle cramps and Denies muscle weakness Skin/Breast Denies rash and Denies skin ulcer Neuro Denies Abnormal speech present, Denies confusion, Denies vertigo, Denies dizziness, Denies syncope, Denies headache(s), Denies memory loss and Denies seizure-like activity Psych Denies anxiety, Denies confusion, Denies depression, Denies memory loss, Denies panic attacks and Denies paranoia Endo Denies excessive sweating, Denies fatigue, Denies flushing, Denies polydipsia and Denies polyuria Aller/Immun Denies wheezing Physical exam (Primary Care) Vital Signs: Last Vital Signs Pulse 67 10/15/23 10:30 BP 134/60 10/15/23 10:30 Pulse Ox 99 10/15/23 10:30 Oxygen Delivery Method Room Air 10/15/23 10:30 BMI result Body Mass Index 20.9 Tobacco/Smoking Status: Tobacco use Status Tobacco use date assessed 03/18/23 10/15/23 10:33 Patient Tobacco Use Status Never used Tobacco 10/15/23 10:33 Tobacco use type Cigarette 10/15/23 10:33 e-Cigarette/Vaping Use Never Used 10/15/23 10:33 Thrive Assessment: Date of Thrive Assessment Date Thrive assessed 03/18/23 10/15/23 10:33 Const General: cooperative, comfortable, no acute distress, alert and awake; No confusion Orientation/consciousness: oriented to person, oriented to place, patient oriented x3 and No confusion HENMT Head: Yes normocephalic Ears: external ears normal and TM's normal bilaterally Face and sinus: No sinus tenderness Mouth: Normal oral and palatal mucosa present and tongue normal Teeth and gingiva: dentition normal and gingiva normal Throat: Yes posterior oropharynx normal, Yes tonsils normal and Yes uvula midline Eyes Conjunctivae: conjunctivae normal Sclerae: sclerae normal Pupils: Equal, round and reactive pupils present EOM: EOMs intact bilaterally Direct Ophthalmoscopy: No no photophobia Neck Neck: Yes no lymphadenopathy, No tender and Yes no JVD Thyroid: Thyroid normal Carotids: no bruits Chest Chest palpation & inspection: no tenderness Resp Effort & Inspection: normal respiratory effort, no audible wheezes, not labored and no stridor Auscultation: no crackles, no rales, no rhonchi and no wheezes Cardio Jugular venous distension: no JVD Rate: regular rate, not bradycardic and not tachycardic Rhythm: regular rhythm Bruits: no carotid bruits Peripheral pulses: Peripheral pulses 2+ throughout GI Inspection: Yes normal to inspection, No abdominal wall ecchymosis and No visible herniation Palpation (GI): Soft to palpation, nontender, no guarding, not rigid and No hepatosplenomegaly present Auscultation: normoactive bowel sounds General: Yes no CVA tenderness Back/Spine/Pelvis Back: no CVA tenderness and No back tenderness Cervical Spine: cervical ROM normal Thoracic/Lumbar Spine: thoracic and lumbar spine normal to inspection, straight leg raise negative bilaterally, No thoraco-lumbar ROM limited and No lumbar spinal tenderness Skin Lesions: no lesions Rashes: no rashes Wounds: no wounds Neuro General: oriented to person, oriented to place, patient oriented x3, CN's II-XI intact bilaterally and No confusion Cranial nerves: Yes Equal, round and reactive pupils present and Yes Normal accommodation reflex present Cognition (Neuro): normal cognition Speech: No Abnormal speech present Gait exam (Neuro): Normal gait present Motor exam (neuro): 5/5 motor strength present throughout Extrem Right upper extremity: full ROM; no cyanosis Left upper extremity: full ROM; no cyanosis Right lower extremity: no edema Left lower extremity: no edema Psych Appearance: grossly normal Mental Status: mental status grossly normal Affect: normal affect Attitude: cooperative Thought process: Normal thought process present Results AMB Hemoglobin A1c AMB Hemoglobin A1c 7.0 % Last Edit by BLAYNE Contreras on 10/15/23 11:21 Immunizations pneumoc 20-yolanda conj-dip cr(PF) 0.5 mL IM syringe Performing Provider: Que Good PA-C Performing Location: [facility] Administered by: BLAYNE Contreras on 10/15/23 11:22 Dose Route Admin Location Dispensed Lot Number Expiration Date NDC Correctional Security Officer 0.5 mL IM Left Deltoid 0.5 mL [id number] 10/09/24 5829-1670-00 [employer] VIS Given Date VIS Provided VIS Publication Date 10/15/23 Single Vaccine 21 Eligibility Eligibility Date Funding Source Not VFC Eligible 10/15/23 Private Assessment and Plan Assessment & Plan (1) Annual physical exam: Code(s): Z00.00 - Encounter for general adult medical examination without abnormal findings (2) DMII (diabetes mellitus, type 2): Code(s): E11.9 - Type 2 diabetes mellitus without complications Qualifiers: Diabetes mellitus termite control servicer insulin use: with termite control servicer use Diabetes mellitus complication status: with hyperglycemia Qualified Code(s): E11.65 - Type 2 diabetes mellitus with hyperglycemia; Z79.4 - keno terminal operator (current) use of insulin Plan: Patient's diabetes about the control with A1c today 7.0 which has improved from previous. Patient has noted some weight loss since last office visit.. Goal A1c is to be below 7.5 due to Agent correlated ease. (3) HLD (hyperlipidemia): Code(s): E78.5 - Hyperlipidemia, unspecified Qualifiers: Hyperlipidemia type: mixed hyperlipidemia Qualified Code(s): E78.2 - Mixed hyperlipidemia Plan: Patient's most recent fasting lipid panel acceptable with LDL below 70. Continues on statin therapy without side effect. Goal LDL to be below 70 (4) CAD (coronary artery disease): Code(s): I25.10 - Atherosclerotic heart disease of [place] coronary artery without angina pectoris Qualifiers: Coronary Disease-Associated Artery/Lesion type: [place] artery [place] vs. transplanted heart: [place] heart Associated angina: without angina Qualified Code(s): I25.10 - Atherosclerotic heart disease of [place] coronary artery without angina pectoris Plan: Patient followed by Cardiology annually. Continues on dual anti-platelet therapy and statin therapy with goal LDL to be below 70. Again will ask her welfare supervisor about further need for dual antiplatelet therapy. (5) ICD (implantable cardioverter-defibrillator) in place: Code(s): Z95.810 - Presence of automatic (implantable) cardiac defibrillator Plan: Again patient followed by Cardiology annually. Has been doing well with though any notable defibrillator discharges she will ask her welfare supervisor about further need for clopidogrel.. (6) Spondylosis, lumbar, with myelopathy: Code(s): M47.16 - Other spondylosis with myelopathy, lumbar region Plan: Has chronic low back pain that limits her mobility. Does use a lift chair at home that she needs a new chair as it has been giving her problems in his nearly broken. Likely needs physical therapy evaluation for new lift chair. (7) Breast cancer screening: Code(s): Z12.39 - Encounter for other screening for malignant neoplasm of breast Qualifiers: Breast cancer screening modality: mammogram Qualified Code(s): Z12.31 - Encounter for screening mammogram for malignant neoplasm of breast Plan: Needs repeat six-month follow-up mammogram. (8) Colon cancer screening: Code(s): Z12.11 - Encounter for screening for malignant neoplasm of colon Plan: Willing to do Cologuard Orders: Orders Microalbumin, Random (w Creat) 6 Months I10 - Essential (primary) hypertension Lipid Panel 6 Months E78.2 - Mixed hyperlipidemia Complete Blood Count no Diff 6 Months I25.10 - Atherosclerotic heart disease of [place] coronary artery without angina pectoris PT Evaluation and Treatment Today M47.16 - Other spondylosis with myelopathy, lumbar region MM screening mammo BI Today Z12.31 - Encounter for screening mammogram for malignant neoplasm of breast, Z12.39 - Encounter for other screening for malignant neoplasm of breast AMB Hemoglobin A1c Today E11.65 - Type 2 diabetes mellitus with hyperglycemia Comprehensive Rubicon. Panel Fast 6 Months E11.65 - Type 2 diabetes mellitus with hyperglycemia, Z79.4 - keno terminal operator (current) use of insulin Referrals Cologuard Test Z12.11 - Encounter for screening for malignant neoplasm of colon Medications: Refilled [lift chair recliner] As directed 1 ea 0RF I25.10 - Atherosclerotic heart disease of [place] coronary artery without angina pectoris Patient Instructions: Goals: A1c to remain below 7.0, LDL to remain below 70 Barriers: Adherence to physical activity and healthy eating habits Coding Level of Care Code Est Pt Level 4 (80984) Diagnoses Annual physical exam Z00.00 Type 2 diabetes mellitus with hyperglycemia, with long-term current use of insulin E11.65; Z79.4 Diabetes mellitus senior care insulin use: with senior care use Diabetes mellitus complication status: with hyperglycemia Mixed hyperlipidemia E78.2 Hyperlipidemia type: mixed hyperlipidemia Coronary artery disease involving [place] coronary artery of [place] heart without angina pectoris I25.10 Coronary Disease-Associated Artery/Lesion type: [place] artery [place] vs. transplanted heart: [place] heart Associated angina: without angina ICD (implantable cardioverter-defibrillator) in place Z95.810 Spondylosis, lumbar, with myelopathy M47.16 Encounter for screening mammogram for malignant neoplasm of breast Z12.31 Breast cancer screening modality: mammogram Colon cancer screening Z12.11
== END 2023-10-15 11:11 | disposition home or self-care (01) ==
PROVIDERS: PCP Physician Assistant; Visit Provider Physician Assistant
DX: Z00.00 Encounter for general adult medical examination without abnormal findings (principal); E11.65 Type 2 diabetes mellitus with hyperglycemia; Z79.4 Long term (current) use of insulin; E78.2 Mixed hyperlipidemia; I25.10 Atherosclerotic heart disease of native coronary artery without angina pectoris; Z95.810 Presence of automatic (implantable) cardiac defibrillator; M47.16 Other spondylosis with myelopathy, lumbar region; Z12.31 Encounter for screening mammogram for malignant neoplasm of breast; Z12.11 Encounter for screening for malignant neoplasm of colon; Z23 Encounter for immunization
CPT/HCPCS: 83036; 90471; 90677; 99214

== ENCOUNTER 2023-11-20 14:01 | Outpatient (AMB) | payer OTHER, SELFPAY ==
--- NOTE | 2023-11-20 14:16 | A.OFFVIS_ITS ---
Vital Signs 11/20/23 14:17 Height 4 ft 6.72 in Weight 92 lb 4 oz BMI 21.7 BP 120/60 Blood Pressure Location Rt brachial Position Sitting Respiration 16 Pulse 80 Pulse Source Pulse Oximeter Pulse Oximetry (%) 99 Oxygen Delivery Method Room Air Intake Visit Reasons: INP- Other amnesia Intake Note: Pt presents to the office for consultation for memory loss. Consumer Services Consultant Required: Yes Consumer Services Consultant Services: Consumer Services Consultant Present Consumer Services Consultant Name: Beth Simons CMA Allergies Iodinated Contrast Media [IV CONTRAST] Allergy (Intermediate, Verified 11/20/23 14:16) SHORTNESS OF BREATH latex [LATEX] Allergy (Intermediate, Verified 11/20/23 14:16) RASH Medication List - Last Reconciled 11/20/23 by Rae Ariza MD acetaminophen ER 650 mg PO Q6H PRN 30 days albuterol sulfate 90 mcg/actuation 2 puffs PO Q4-6H PRN aspirin 81 mg PO DAILY [bed pads As directed] blood sugar diagnostic (FreeStyle Lite Strips) TESTING ONCE A DAY blood-glucose meter (FreeStyle Lite Meter kit) As directed [cane As directed] clopidogrel 75 mg PO DAILY clotrimazole 1% 1 appl topical BID 30 days cyclobenzaprine 10 mg PO BEDTIME 30 days [diabetic shoes with inserts As directed] [diapers As directed] dicyclomine 20 mg PO TID PRN gabapentin 300 mg PO TID 30 days insulin glargine (Lantus Solostar U-100 Insulin) 44 units (0.44 mL) subcut QAM 30 days lancets (FreeStyle Lancets) testing once per day [lift chair recliner As directed] lisinopril 5 mg PO DAILY metformin 1,000 mg PO BIDWMEAL metoprolol succinate ER 12.5 mg (1/2 x 25 mg) PO DAILY 90 days nitroglycerin 0.4 mg sublingual Q5M PRN 30 days omega-3 fatty acids (Fish Oil Concentrate) 1,000 mg PO DAILY pen needle, diabetic (BD Ultra-Fine Aylin Pen Needle) test once per day simvastatin 40 mg PO BEDTIME HPI Comments Details: 78y/o Left handed female comes for evaluation of memory issues. she is accompanied by her daughter. According to her daughter - In May of this year the patient had an argument with her sister who told patient that she was crazy and she had dementia which initiates this visit. she has short term memory issues- mild for past 1-2 years .she forgets appointments and repeats questions. she has [employer] to help with her ADLS .she can do most of her personal hygiene. she lives alone and her daugter lives 5 minutes away. Her sleep and mood are good No behavior issues. she is illiterate [facility] Medical History Diabetes Recurrent UTI Osteoarthritis Surgical History H/O heart artery stent History of pacemaker H/O angioplasty History of bilateral cataract extraction S/P trigger finger release History of tubal ligation Family History Father Past heart attack Mother Throat cancer Smoker Brother Past heart attack Brother Lung cancer Daughter Hypertension CHF (congestive heart failure) Son Diabetes Social History Housing: Apartment Alcohol intake: never Patient Tobacco Use Status: Never used Tobacco Tobacco use type: Cigarette e-Cigarette/Vaping Use: Never Used Second Hand Smoke Exposure: No service: No Current occupational status: disabled Cognitive needs: Yes Hearing needs: No Vision needs: No Physical Exam Vital Signs: Last Vital Signs Pulse 80 11/20/23 14:17 Resp 16 11/20/23 14:17 BP 120/60 11/20/23 14:17 Pulse Ox 99 11/20/23 14:17 Oxygen Delivery Method Room Air 11/20/23 14:17 BMI result Body Mass Index 21.7 Const Orientation/consciousness: oriented to person, oriented to place and oriented to time Eyes Pupils: Equal, round and reactive pupils present Neuro Other: MMSE 21/23 General: oriented to person, oriented to place, oriented to time, tone normal, moves all extremities and no focal motor deficits Cranial nerves: Yes Facial sensation intact/muscles of mastication intact, Yes Equal, round and reactive pupils present, Yes Bilaterally intact EOM present, Yes Nystagmus not present, Yes Normal facial strength present and Yes Midline tongue present Gait exam (Neuro): Antalgic gait present Motor exam (neuro): 5/5 motor strength present throughout and Normal motor muscle tone present throughout Deep tendon reflexes (DTR's): Right triceps reflex intensity grade: 1+, Left triceps reflex intensity grade: 1+, Rt Biceps (C5, C6): 1+, Left biceps reflex intensity grade: 1+, Right brachioradialis reflex intensity grade: 1+, Left brachioradialis reflex intensity grade: 1+, Right patellar reflex intensity grade: 1+ and Left patellar reflex intensity grade: 1+ Coordination: [id number] test normal Orientation What is the (year) (season) (date) (day) (month)?: year, season, date, day and month Where are we (state) (county) (town or city) (hospital) (floor)?: state, county, town or city, hospital/clinic and floor Registration Name of 3 unrelated objects clearly and slowly, then ask patient to repeat all 3 of them. (1st repeat determines score. Make sure they can repeat all three): object 1, object 2 and object 3 Recall Ask patient to repeat the 3 items from question #3.: object 1 and object 2 Language Show patient a wristwatch & ask what it is. Repeat for pencil.: watch and pencil Ask the patient to repeat the phrase 'No ifs, ands, or buts' after you.: correct Ask the patient to 'take a piece of paper with their right hand' 'fold paper in half' 'place paper on floor': take paper in right hand, fold paper in half and place paper on floor Score Score: 21 Results Reviewed Results Reviewed: CT Brain 08/01 No acute intracranial abnormalities. *Moderate diffuse parenchymal volume loss the brain and moderate-marked chronic microangiopathic ischemic changes. 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 *Moderate segmental calcific atherosclerosis of the cavernous portions of the internal carotid arteries. *No intracranial tumors. No disproportionate prominence of the temporal horns of the lateral ventricles to specifically suggest disproportionate hippocampal volume loss. No evidence of normal pressure hydrocephalus. Assessment & Plan Assessment & Plan (1) Cognitive disorder: Comment: age related , limited MMSE due to ehr education level Code(s): F09 - Unspecified mental disorder due to known physiological condition Category: Medical Plan Reviewed CT brain -showed atrophy and white matter changes I will check her Vit B 12 levels Suggested to play cognitive games and increase her cognitive active Risk factor reduction - diabetes, HTN etc Orders: Orders Erythrocyte Sedimentation Rate Today F09 - Unspecified mental disorder due to known physiological condition Vitamin B12 and Folate Today F09 - Unspecified mental disorder due to known physiological condition Homocysteine Today F09 - Unspecified mental disorder due to known physiological condition Coding Level of Care Code New Pt Level 4 (25230) Diagnoses Cognitive disorder F09
[2023-11-20 14:17] VITALS: BP 120/60; PULSE 80; RESP 16; O2SAT 99; BMI 21.7
== END 2023-11-20 14:57 | disposition home or self-care (01) ==
PROVIDERS: PCP Physician Assistant; Visit Provider Psychiatry & Neurology Neurology
DX: R41.89 Other symptoms and signs involving cognitive functions and awareness (principal)
CPT/HCPCS: 99204

== ENCOUNTER 2023-11-20 14:59 | Outpatient (REF) | payer OTHER, SELFPAY ==
[2023-11-20 18:28] LABS: Folate 13.9 ng/mL (> or = 4.0); Vitamin B12 198 pg/mL (200-900)
[2023-11-20 18:31] LABS: Erythrocyte Sedimentation Rate 7 MM/HR (0-20)
[2023-11-21 19:18] LABS: Homocysteine 24.6 umol/L (<10.4)
== END 2023-11-20 15:00 | disposition home or self-care (01) ==
LOC: HO.HKASLDS 14:59
PROVIDERS: Visit Provider Psychiatry & Neurology Neurology
DX: F09 Unspecified mental disorder due to known physiological condition (principal)
CPT/HCPCS: 36415; 82607; 82746; 83090; 85652; 99202

== ENCOUNTER 2023-12-02 12:34 | Outpatient (REF) | payer OTHER, SELFPAY ==
--- NOTE | ~2023-12-02 | MM_ITS ---
EXAMINATION: MM DIAGNOSTIC DIGITAL BREAST TOMOSYNTHESIS, BILATERAL CLINICAL INFORMATION: 6 month follow-up for probably benign calcifications right breast 12:00 axis, anterior one third (to establish one-year stability). Patient also due for yearly. Patient has pacemaker left chest wall. COMPARISON: Mammography: 05/29/2023, 11/26/2022, 11/07/2022 (BI-RADS 0), 04/11/2021. Priors dating back to 2014. TECHNIQUE: Digital breast tomosynthesis is performed in both the craniocaudal and mediolateral oblique views along with computer-aided detection (CAD). Synthesized 2D images are generated from the tomosynthesis. In addition to standard views, added right MLO tangential views were obtained x3, and 2-D spot magnification views of the right breast in the CC and ML projection. FINDINGS: There are scattered areas of fibroglandular density (ACR BI-RADS breast composition Category b). Tangential views demonstrate calcifications at 12:00 right breast anterior one third are close to, but not within the skin. Spot magnification views demonstrate the small group of punctate calcifications in question 12:00 are entirely unchanged in number and morphology. No aggressive changes have occurred. In review of prior studies, particularly 12/14/2015, it is noted these calcifications were present and entirely unchanged at that time. These calcifications are benign. No further follow-up recommended. There is a pacemaker device in the left chest wall obscuring the superior axillary tail region of the left breast, unchanged. There are extensive vascular calcifications in both breasts. No developing masses, new suspicious calcifications, or areas of architectural distortion in either breast. The overall parenchymal pattern is stable/unchanged from prior. No skin or axillary abnormalities. MM/MM tomosynthesis diagnostic BI IMPRESSION: -There are no findings suspicious for malignancy in either breast. -Calcifications in question in the anterior 12:00 right breast are benign. No further follow-up recommended. -Recommend the patient return to routine annual screening. ASSESSMENT: BI-RADS BI-RADS 2 - Benign Findings RECOMMENDATION: 1 year F/U Results were provided to the patient at time of visit by the technologist. This patient's information was entered into a reminder system with a target due date for their next mammogram. Electronically signed by: Marin Galarza MD 12/02/2023 04:48 PM EDT
== END 2023-12-02 12:35 | disposition home or self-care (01) ==
LOC: HO.MAMMO 12:34
PROVIDERS: PCP Physician Assistant; Visit Provider Physician Assistant
DX: R92.1 Mammographic calcification found on diagnostic imaging of breast (principal)
CPT/HCPCS: 77062; 77066

== ENCOUNTER → 2023-12-02 13:00 | Outpatient (BNV) | payer OTHER, SELFPAY | PROVIDERS: PCP Physician Assistant; Visit Provider Radiology Diagnostic Radiology | DX: R92.1 Mammographic calcification found on diagnostic imaging of breast (principal) | CPT/HCPCS: 77066; G0279 ==

== ENCOUNTER 2023-12-11 14:00 | Outpatient (RCR) | payer OTHER, SELFPAY ==
--- NOTE | 2023-11-22 08:55 | MHC.PT.EP ---
[facility] [place] [facility] [place] [facility] [place] [facility] [address] Stephan Núñez [address] [phone] F: [phone] F: [phone] F: [phone] F: [phone] Physical Therapy Plan of Care Date of Evaluation: 11/22/23 Date of Surgery: Diagnosis: low back pain Assessment: Patient is a 78 year old R handed Sammarinese speaking female who presents with s/s consistent with low back pain. She does not work and is mostly sedentary during the day. Patient past medical history includes stents, pacemaker and chronic back pain. Current impairments include pain, posture, ROM, strength, activity tolerance and functional mobility. Functional limitations include decreased ability to transfer, walk, stand, bend, lift, and get out into the community. She does have a history of a fall. Patient is motivated with good rehab potential. Skilled PT will address impairments and functional limitations in order to achieve goals. Frequency and Duration: The patient will be seen 2x/week for 5 weeks Short Term Goals: I with HEP - 2 weeks AROM rotation to 75% and pain free - 3 weeks Pain in back with ADLs 10 - 3 weeks Fpc Goals: Oswestry 20% or less - 5 weeks Able to walk 30 minutes without increased pain- 5 weeks TTP absent, max pain with ADLs /10 - 5 weeks Treatment Plan: Modalities to reduce pain, spasms and effusion. Manual therapy to restore motion and function. Therapeutic exercise to improve strength and flexibility. Neuromuscular re-education for posture and balance. Therapeutic activities to return to functional activities of daily living. Electronically signed by: Rivas Ding, PT Please sign and return to therapist. Thank you for your referral.
--- NOTE | 2023-12-19 13:26 | MHC.PT.DC ---
[facility] [place] Office [place] Office [place] Office [address] Stephan Núñez [address] [phone] F: [phone] F: [phone] F: [phone] F: [phone] Physical Therapy Discharge Report Diagnosis: low back pain Date of Surgery: Date of Evaluation: 11/22/23 Date of Discharge: 12/19/23 Treatments to Date: 6 Cancellations to Date: No Shows to Date: Discharge Status: Achieved Goals Independent with HEP Discharge Summary: 12/11/23: pt progressed somewhat over the course of skilled PT and is ready to d/c to HEP. She is I with HEP. her AROM is 75% b/l. Able to walk 15-20 minutes without increased pain. TTP absent. d/c to HEP at this time. 12/06/23: pt progressing well with skilled PT. no adverse reactions from above program. we will continue to progress as tolerated but taper to 1x/week for 2 weeks. 12/03; Pt performed all exs with only c/o being fatigued after the stepper. 11/29/23: pt progressing well. min s/s in spine after PT. tolerating strength progress well. 11/26; Patient is a 78 year old R handed Polish speaking female who presents with s/s consistent with low back pain. She does not work and is mostly sedentary during the day. Patient past medical history includes stents, pacemaker and chronic back pain. Current impairments include pain, posture, ROM, strength, activity tolerance and functional mobility. Functional limitations include decreased ability to transfer, walk, stand, bend, lift, and get out into the community. She does have a history of a fall. Patient is motivated with good rehab potential. Skilled PT will address impairments and functional limitations in order to achieve goals. Electronically signed by: Rivas Ding, PT Please sign and return to therapist. Thank you for your referral.
== END 2023-12-19 13:26 | disposition home or self-care (01) ==
LOC: HO.PTCHIC 14:00
PROVIDERS: PCP Physician Assistant; Visit Provider Physician Assistant
DX: M47.16 Other spondylosis with myelopathy, lumbar region (principal)
CPT/HCPCS: 97110; 97163

== ENCOUNTER 2024-01-08 10:34 | Outpatient (REF) | payer OTHER, SELFPAY ==
[2024-01-08 11:42] LABS: Basophils Percent Auto 0.1 % (0-2); Eosinophils Percent Auto 0.3 % (0-4); Hematocrit 35.8 % (37.0-47.0); Hemoglobin 11.5 g/dl (12.0-16.0); Imm Gran Abs Auto 0.02 X10*3/uL (0.00-0.03); Imm Gran Pct Auto 0.3 % (0.0-0.4); Lymphocytes Absolute Auto 2.8 X10*3/uL (1.2-4.9); Lymphocytes Percent Auto 41.7 % (20-40); MANUAL DIFF FLAG NO; Mean Corpuscular HGB Conc 32.1 g/dl (31.0-35.0); Mean Corpuscular Hemoglobin 29.8 pg (27.0-33.0); Mean Corpuscular Volume 92.7 fL (80.0-98.0); Monocytes Absolute Auto 0.5 X10*3/uL (0.1-1.2); Neutrophils Absolute Auto 3.4 x10*3/uL (2.0-8.3); Neutrophils Percent Auto 50.6 % (45-73); Platelet Count 322 X10*3/uL (160-400); Red Blood Count 3.86 X10*6/uL (4.20-5.50); Red Cell Distribution Width 12.7 % (11.0-16.0); White Blood Count 6.7 X10*3/uL (4.8-10.8)
[2024-01-08 11:54] LABS: Appearance Urine Clear; Color Urine Yellow; Glucose Urine UA Negative (Negative); Leukocyte Esterase Urine Negative (Negative); Nitrite Urine Negative (Negative); Specific Gravity - Urine >= 1.030 (1.005-1.025); Urine Blood Negative (Negative); Urine Ketones Trace mg/dL (Negative); Urine Protein Negative (Neg-Trace)
[2024-01-08 12:20] LABS: Creatinine Urine 201.53 mg/dL; Microalbum/Creatinine Ratio Ur 24.3 ug/mg cr (<30); Protein/Creatinine Ratio, Ur 0.13 (<0.2); Total Protein Urine Random 27 mg/dL (<12)
[2024-01-08 12:34] LABS: Parathyroid Hormone Intact 170.8 pg/mL (8.7-77.1)
[2024-01-08 12:37] LABS: Albumin Level 4.3 g/dL (3.5-5.0); Anion Gap 17 (12-20); Blood Urea Nitrogen 26 mg/dL (9-16); Calcium 9.9 mg/dL (8.4-10.2); Carbon Dioxide 18 mmol/L (22-29); Chloride 109 mmol/L (96-108); Estimated Glomerular Filt Rate 38; Magnesium 1.5 mg/dL (1.6-2.6); Phosphorus 2.8 mg/dL (2.7-4.5); Potassium 5.2 mmol/L (3.3-5.1); Sodium 139 mmol/L (135-145)
[2024-01-08 12:48] LABS: Vitamin D 25-OH Total 26.4 ng/mL (>30)
== END 2024-01-08 10:35 | disposition home or self-care (01) ==
LOC: HO.LAB 10:34
PROVIDERS: PCP Physician Assistant; Visit Provider Internal Medicine Nephrology
DX: N18.31 Chronic kidney disease, stage 3a (principal); E11.22 Type 2 diabetes mellitus with diabetic chronic kidney disease
CPT/HCPCS: 36415; 80051; 81003; 82040; 82043; 82306; 82310; 82565; 82570; 83735; 83970; 84100; 84156; 84520; 85025; 87086

== ENCOUNTER 2024-02-10 12:45 | Outpatient (AMB) | payer OTHER, SELFPAY ==
[2024-02-10 13:16] VITALS: BP 114/58; PULSE 72; O2SAT 99; BMI 21.8
--- NOTE | 2024-02-10 13:16 | A.OFFPC_ITS ---
Vital Signs 02/10/24 13:16 Height 4 ft 6.72 in Weight 93 lb BMI 21.8 BP 114/58 L Blood Pressure Location Lt brachial Position Sitting Pulse 72 Pulse Source Pulse Oximeter Pulse Oximetry (%) 99 Oxygen Delivery Method Room Air Intake Visit Reasons: Medication Review Intake Note: The patient is here for a medication review prior to their upcoming operations analyst appointment. Business Manager College Or University Required: No Accompanied by: daughter/proxy Allergies Iodinated Contrast Media [IV CONTRAST] Allergy (Intermediate, Verified 02/10/24 13:25) SHORTNESS OF BREATH latex [LATEX] Allergy (Intermediate, Verified 02/10/24 13:25) RASH Medication List - Last Reconciled 02/10/24 by Que Good PA-C acetaminophen ER 650 mg PO Q6H PRN 30 days albuterol sulfate 90 mcg/actuation 2 puffs PO Q4-6H PRN aspirin 81 mg PO DAILY [bed pads As directed] blood sugar diagnostic (FreeStyle Lite Strips) TESTING ONCE A DAY blood-glucose meter (FreeStyle Lite Meter kit) As directed [cane As directed] clotrimazole 1% 1 appl topical BID 30 days cyanocobalamin (vitamin B-12) 1,000 mcg IM Q4W 1 month [diabetic shoes with inserts As directed] [diapers As directed] dicyclomine 20 mg PO TID PRN insulin glargine (Lantus Solostar U-100 Insulin) 44 units subcut QAM PRN lancets (FreeStyle Lancets) testing once per day [lift chair recliner As directed] metformin 1,000 mg PO BIDWMEAL metoprolol succinate ER 12.5 mg (1/2 x 25 mg) PO DAILY 90 days nitroglycerin 0.4 mg sublingual Q5M PRN 30 days omega-3 fatty acids (Fish Oil Concentrate) 1,000 mg PO DAILY pen needle, diabetic (BD Ultra-Fine Aylin Pen Needle) test once per day sacubitril-valsartan 24-26 mg (Entresto) 1 tab PO BID simvastatin 40 mg PO BEDTIME Tobacco use date assessed: 03/18/23 Dental Screening Dental Screen Date: 03/18/23 HPI Medication Review HPI Details Patient is a 78 year female here today for follow-up visit. ? Patient is Japanese-speaking only to which most of history came from daughter. ?Patient has a past medical history significant for hypertension, type 2 diabetes, coronary artery disease, ICD placed, hyperlipidemia, lumbar spondylosis. DMII: Reports Blood sugars have been stable at home. Most recent A1c at 7.0 which has improved from previous. Family reports she only takes metformin at this time and has been watching her diet. Insulin has not been used for quite some time. No reports of hypoglycemic events. .. Lumbar spondylosis: Often uses a cane for ambulation assistance. Does have a lift chair needs new script and a new lift chair recliner due to currently not working. Will likely need physical therapy evaluation for lift chair recliner. .. HTN: Blood pressure today in office acceptable.? Denies any chest discomfort, shortness of breath, palpitations or headaches. She does have microalbuminuria. She is followed by wood machine carver .. B12 deficiency: Was given IM injections of B12 though family can not be committed to IM injections monthly. Will return back to oral B12 and will follow CBC and B12 labs. .. CAD:? Patient is followed by operations analyst at [facility] ( Dr Pruitt) . Does have a ICD placement? .Continues on beta-latoya, has been taken off of clopidogrel. Recent echocardiogram showing severe reduced systolic function. Has been placed on entresto though had hyperkalemia. Cardiology working on finding a better medication to help heart function. ? [facility] Medical History (Updated 02/11/24 @ 07:52 by Que Good PA-C) Incontinence Cognitive disorder Osteoarthritis Surgical History H/O heart artery stent History of pacemaker H/O angioplasty History of bilateral cataract extraction S/P trigger finger release History of tubal ligation Family History Father Past heart attack Mother Throat cancer Smoker Brother Past heart attack Brother Lung cancer Daughter Hypertension CHF (congestive heart failure) Son Diabetes Social History Housing: Apartment Alcohol intake: never Patient Tobacco Use Status: Never used Tobacco Tobacco use type: Cigarette e-Cigarette/Vaping Use: Never Used Second Hand Smoke Exposure: No service: No Current occupational status: disabled Cognitive needs: Yes Hearing needs: No Vision needs: No Questionnaire Thrive Questionnaire Date Thrive assessed: 03/18/23 KAI-7 AMB Questionnaire KAI-7 Date KAI - 7 assessed: 03/18/23 Source: Developed by Drs. Josh Mensah, Rebeca Caruso, Elan Akhtar and colleagues, with an educational ha from [employer]. Review of Systems Const Denies headache(s) Eyes Denies loss of vision ENT Denies vertigo, Denies dizziness, Denies headache(s) and Denies sore throat Card Denies chest pain, Denies leg edema and Denies lightheadedness Resp Denies cough, Denies hemoptysis and Denies wheezing GI Denies abdominal pain, Denies melena, Denies constipation, Denies diarrhea and Denies vomiting Denies urinary frequency, Denies dysuria and Denies urinary urgency Musc Denies arthralgias, Denies joint swelling, Denies numbness and Denies tingling Neuro Denies Abnormal speech present, Denies behavioral changes, Denies vertigo, Denies dizziness, Denies headache(s), Denies loss of vision, Denies memory loss, Denies numbness and Denies tingling Psych Denies anxiety, Denies behavioral changes, Denies depression, Denies memory loss and Denies panic attacks Irwin/Lymph Denies easy bleeding and Denies easy bruising Aller/Immun Denies wheezing Physical exam (Primary Care) Vital Signs: Last Vital Signs Pulse 72 02/10/24 13:16 BP 114/58 L 02/10/24 13:16 Pulse Ox 99 02/10/24 13:16 Oxygen Delivery Method Room Air 02/10/24 13:16 BMI result Body Mass Index 21.8 Tobacco/Smoking Status: Tobacco use Status Tobacco use date assessed 03/18/23 02/10/24 13:19 Patient Tobacco Use Status Never used Tobacco 02/10/24 13:19 Tobacco use type Cigarette 02/10/24 13:19 e-Cigarette/Vaping Use Never Used 02/10/24 13:19 Thrive Assessment: Date of Thrive Assessment Date Thrive assessed 03/18/23 02/10/24 13:19 Const General: healthy appearing, no acute distress, alert and awake Nutritional Appearance: well nourished Orientation/consciousness: oriented to person, oriented to place and oriented to time HENMT Ears: TM's normal bilaterally General nose exam: Normal nasal mucous membranes and turbinates present Eyes Conjunctivae: conjunctivae normal Sclerae: sclerae normal Pupils: Equal, round and reactive pupils present Neck Neck: Yes no lymphadenopathy and Yes no JVD Thyroid: Thyroid normal Carotids: no bruits Resp Effort & Inspection: normal respiratory effort and not tachypneic Auscultation: no crackles, no rales, no rhonchi and no wheezes Cardio Rate: regular rate Rhythm: regular rhythm Heart sounds: no murmurs and normal S1 and S2 GI Palpation (GI): Soft to palpation, nontender, no hepatomegaly and no splenomegaly Auscultation: normal bowel sounds Skin General skin exam: no rashes or lesions noted and dry skin Neuro General: oriented to person, oriented to place and oriented to time Cranial nerves: Yes Equal, round and reactive pupils present Speech: No Abnormal speech present Gait exam (Neuro): Normal gait present Motor exam (neuro): no tremor noted Extrem Right upper extremity: full ROM Left upper extremity: full ROM Right lower extremity: full ROM; no edema Left lower extremity: full ROM; no edema Psych Mental Status: mental status grossly normal Speech and movement: Normal speech and movement present Affect: normal affect Attitude: cooperative Thought process: Normal thought process present Coding Level of Care Code Est Pt Level 4 (36256) Diagnoses Type 2 diabetes mellitus with hyperglycemia, with long-term current use of insulin E11.65; Z79.4 Diabetes mellitus oysterman insulin use: with oysterman use Diabetes mellitus complication status: with hyperglycemia B12 deficiency E53.8 Primary hypertension I10 Hypertension type: primary hypertension Coronary artery disease involving pamunkey coronary artery of pamunkey heart without angina pectoris I25.10 Coronary Disease-Associated Artery/Lesion type: pamunkey artery Cherokee vs. transplanted heart: pamunkey heart Associated angina: without angina Mixed hyperlipidemia E78.2 Hyperlipidemia type: mixed hyperlipidemia Assessment & Plan Assessment & Plan (1) DMII (diabetes mellitus, type 2): Code(s): E11.9 - Type 2 diabetes mellitus without complications Category: Medical Qualifiers: Diabetes mellitus oysterman insulin use: with fci use Diabetes mellitus complication status: with hyperglycemia Qualified Code(s): E11.65 - Type 2 diabetes mellitus with hyperglycemia; Z79.4 - correction (current) use of insulin Plan: Patient's type 2 diabetes well controlled with current dose of metformin. Does have insulin available to her though has not been using this for quite some time. Has also been working on dietary modifications. Goal A1c is to be below 7.5. (2) B12 deficiency: Code(s): E53.8 - Deficiency of other specified B group vitamins Category: Medical Plan: Does have a slight B12 deficiency. Was given IM injection of B12 previously though family can not make the commitment to come into the office once a month to get IM injections. Will return back to using oral B12 to see if this will help. (3) Hypertension: Code(s): I10 - Essential (primary) hypertension Category: Medical Qualifiers: Hypertension type: primary hypertension Qualified Code(s): I10 - Essential (primary) hypertension Plan: Patient's blood pressure acceptable today in office. Will continue on her current dose metoprolol. Cardiology is following and is considering starting entesto for her Congestive heart failure with reduced ejection fraction. No overt signs of Congestive heart failure at physical exam at this point. (4) CAD (coronary artery disease): Code(s): I25.10 - Atherosclerotic heart disease of pamunkey coronary artery without angina pectoris Category: Medical Qualifiers: Coronary Disease-Associated Artery/Lesion type: pamunkey artery Cherokee vs. transplanted heart: pamunkey heart Associated angina: without angina Qualified Code(s): I25.10 - Atherosclerotic heart disease of pamunkey coronary artery without angina pectoris Plan: As per HPI patient is followed by Cardiology at [facility]. Does have an ICD placed (5) HLD (hyperlipidemia): Code(s): E78.5 - Hyperlipidemia, unspecified Category: Medical Qualifiers: Hyperlipidemia type: mixed hyperlipidemia Qualified Code(s): E78.2 - Mixed hyperlipidemia Plan: Most recent lipid panel showing good control over total cholesterol and LDL. She will continue simvastatin 40 mg with goal optimal LDL to be below 70 Orders: Orders Vitamin B12 and Folate 02/10/24 E53.8 - Deficiency of other specified B group vitamins Complete Blood Count no Diff 02/10/24 E53.8 - Deficiency of other specified B group vitamins Lipid Panel 02/10/24 E11.65 - Type 2 diabetes mellitus with hyperglycemia, Z79.4 - rodent exterminator (current) use of insulin Comprehensive [place]. Panel Fast 02/10/24 E11.65 - Type 2 diabetes mellitus with hyperglycemia, Z79.4 - correction (current) use of insulin Microalbumin, Random (w Creat) 02/10/24 R80.9 - Proteinuria, unspecified Medications: New mecobalamin (vitamin B12) 1,000 mcg PO DAILY 90 days 90 tabs 2RF E53.8 - Deficiency of other specified B group vitamins Changed From insulin glargine (Lantus Solostar U-100 Insulin) 44 units (0.44 mL) subcut QAM 30 days 13.2 mL 3RF E11.9 - Type 2 diabetes mellitus without complications, Z79.4 - rodent exterminator (current) use of insulin To insulin glargine (Lantus Solostar U-100 Insulin) 44 units subcut QAM PRN E11.9 - Type 2 diabetes mellitus without complications, Z79.4 - rodent exterminator (current) use of insulin Refilled albuterol sulfate 90 mcg/actuation 2 puffs PO Q4-6H PRN 8.5 ea 3RF for muscle spasm E53.8 - Deficiency of other specified B group vitamins Discontinued cyanocobalamin (vitamin B-12) Discontinued Reason: Doctor's Order 1,000 mcg IM Q4W 1 month 2 mL 6RF E53.8 - Deficiency of other specified B group vitamins dicyclomine Discontinued Reason: Doctor's Order 20 mg PO TID PRN 90 tabs 3RF for abdominal pain clotrimazole 1% Discontinued Reason: Doctor's Order 1 appl topical BID 30 days 30 grams 3RF B37.2 - Candidiasis of skin and nail
== END 2024-02-10 16:24 | disposition home or self-care (01) ==
LOC: HO.HMCH 12:46
PROVIDERS: PCP Physician Assistant; Visit Provider Physician Assistant
DX: E11.65 Type 2 diabetes mellitus with hyperglycemia (principal); Z79.4 Long term (current) use of insulin; E53.8 Deficiency of other specified B group vitamins; I10 Essential (primary) hypertension; I25.10 Atherosclerotic heart disease of native coronary artery without angina pectoris; E78.2 Mixed hyperlipidemia

== ENCOUNTER → 2024-02-10 12:45 | Outpatient (BNVA) | payer OTHER, SELFPAY | PROVIDERS: PCP Physician Assistant; Visit Provider Physician Assistant | DX: E11.65 Type 2 diabetes mellitus with hyperglycemia (principal); Z79.4 Long term (current) use of insulin; E53.8 Deficiency of other specified B group vitamins; I10 Essential (primary) hypertension; I25.10 Atherosclerotic heart disease of native coronary artery without angina pectoris; E78.2 Mixed hyperlipidemia | CPT/HCPCS: 99212 ==

== ENCOUNTER 2024-04-17 08:51 | Outpatient (REF) | payer OTHER, SELFPAY ==
[2024-04-17 09:09] LABS: Hematocrit 34.9 % (37.0-47.0); Hemoglobin 11.1 g/dl (12.0-16.0); Mean Corpuscular HGB Conc 31.8 g/dl (31.0-35.0); Mean Corpuscular Hemoglobin 28.8 pg (27.0-33.0); Mean Corpuscular Volume 90.6 fL (80.0-98.0); Mean Platelet Volume 9.8 fL (9.4-12.3); Platelet Count 204 X10*3/uL (160-400); Red Blood Count 3.85 X10*6/uL (4.20-5.50); Red Cell Distribution Width 13.6 % (11.0-16.0)
--- OUTSIDE RECORDS SUMMARY | 2024-04-17 09:11 | XMS_ITS | Patient Health Record ---
Author Organization [facility] Billing Info Address [address] [place] [id number] Care Team Providers Care Ribbon Sweatband Operator Name Role Phone PURVI LUCAS Unavailable [phone] Tremayne Hatch Unavailable Unavailable Reason For Referral No Information Plan Of Treatment No Information Insurance Providers Payer Name Payer Address Payer Phone Subscriber Number Group Number Insured Name Patient Relationship to Insured Coverage Start Date Coverage End Date [facility] [address] [address] [facility] [place] [place] [id number] [facility] [place] Shabana Baron Self - patient is the insured 8 [facility] CHOICE [address] [place], [place] [id number] Shabana Baron Self - patient is the insured
--- OUTSIDE RECORDS SUMMARY | 2024-04-17 09:11 | XMS_ITS | Clinical Summary ---
Author Organization [facility] Facility Address [address] [place] [id number] Care Team Providers Care Food Selector Name Role Phone Que Good Primary Care Provider [phone] Allergies Active Allergy Reactions Criticality Noted Date Comments Iodinated Contrast Media Itching,Other (see comments) High 12/25/2017 Medications simvastatin (ZOCOR) 40 MG tablet 3 Active metFORMIN (GLUCOPHAGE) 1000 MG tablet TOME LADAN TABLETA DOS VECES AL D A WITH FOOD 3 Active lisinopril 5 MG tablet 3 Active Lantus SoloStar 100 UNIT/ML injection INJECT 44 UNITS SUBCUTANEOUSLY EVERY MORNING FOR 30 DAYS 3 Active Aspirin Low Dose 81 MG EC tablet TOME LADAN TABLETA TODOS LOS D 3 Active acetaminophen (TYLENOL 8 HOUR) 650 MG 8 hr tablet Take 650 mg by mouth Active acetaminophen (TYLENOL 8 HOUR) 650 MG 8 hr tablet 3 Active cyclobenzaprin e (FLEXERIL) 10 MG tablet Take 10 mg by mouth 3 (three) times a day if needed for muscle spasms Active ferrous sulfate 325 (65 Fe) MG tablet Take 325 mg by mouth 1 (one) time each day with breakfast Active dicyclomine (BENTYL) 20 MG tablet Take 20 mg by mouth every 6 (six) hours Active metoprolol succinate XL (TOPROL XL) 25 MG 24 hr tablet TAKE 1/2 TABLET (12.5 MG) BY MOUTH FOR 90 DAYS 4 Active albuterol HFA (ProAir HFA) 108 (90 Base) MCG/ACT inhaler Inhale 9 Active Active Problems Problem Noted Date Diagnosed Date Stage 3b chronic kidney disease 02/03/2024 Renal osteodystrophy 02/03/2024 Essential (primary) hypertension 01/21/2023 Type 2 diabetes mellitus 01/21/2023 023 Tubal ligation status 01/21/2023 01/21/2023 Osteoporosis 01/21/2023 01/21/2023 Ischemic cardiomyopathy 01/21/2023 01/22/20 23 Hyperlipidemia 01/21/2023 01/21/2023 Cataract 01/21/2023 01/21/2023 Asthma 01/21/2023 01/21/2023 Stage 3a chronic kidney disease 01/21/2023 Type 2 diabetes mellitus wit h diabetic chronic kidney disease 01/21/2023 Encounters Date Type Department Care Team Description 02/03/2024 2:00 PM EST Office Visit [facility] [address] [place] [address] Bryson Navarro MD Stage 3b chronic kidney disease (HCC) (Primary Dx); Type 2 diabetes mellitus with diabetic chronic kidney disease (HCC); Renal osteodystrophy from Last 3 Months Family History Relation Status Comments Father Mother Social History Tobacco Use Types Packs/Day Years Used Date Smoking Tobacco: Never Smokeless Tobacco: Never Tobacco Cessation:Counseling Given: Not Answered Alcohol Use Standard Drinks/Week Comments Never 0 (1 standard drink = 0.6 oz pur e alcohol) Comments Unknown Sex and Gender Information Value Date Recorded Sex Assigned at Not on file Legal Sex Female 10:26 AM EDT Gender Identity Not on file Sexual Orientation Not on file Last Filed Vital Signs Vital Sign Reading Time Taken Comments Blood Pressure 118/60 02/03/2024 1:45 PM EST Pulse 64 02/03/2024 1:45 PM EST Temperature - - Respiratory Rate - - Oxygen Saturation 98% 02/03/2024 1:45 PM EST Inhaled Oxygen Concentration - - Weight 44.2 kg (97 lb 6.4 oz) 02/03/2024 1:45 PM EST Height - - Body Mass Index - - Plan of Treatment Upcoming Encounters Date Type Department Care Team (Late st Contact Info) Description 08/17/2024 3:00 PM EDT Office Visit [facility] [address] [place] [address] Bryson Navarro MD [address] [facility] [address] [place] [id number] Health Maintenance Due Date Last Done Comments Pneumococcal Vaccine: 65+ Ye ars (1 of 2 - PCV) 1951 Diabetes: Hemoglobin A1C 01/21/2023 Diabetes: Ophthalmology Exam 01/21/2023 Diabetes: Pedal Pulse Checked 01/21/2023 Diabetes: Sensory Foot Exam 01/21/2023 Diabetes: Visual Foot Exam 01/21/2023 Influenza Vaccine (#1) 2023 Hepatitis B Vaccine Aged Out No longe r eligible based on patient's age to complete this topic Insurance [facility] ([id number]) JEANNINE SAAVEDRA [id number] [facility] ([id number]) Care Teams Food Selector Relationship Specialty Start Date End Date Que Good PA [address], [address] [place] [address] PCP - General Physician Compensation Expert 08/14/21
[2024-04-17 11:22] LABS: Creatinine Urine 92.85 mg/dL; Microalbum/Creatinine Ratio Ur 16.1 ug/mg cr (<30)
[2024-04-17 11:52] LABS: Alanine Aminotransferase 14 U/L (0-31); Albumin Level 4.2 g/dL (3.5-5.0); Alkaline Phosphatase 55 U/L (39-117); Anion Gap 10 (12-20); Aspartate Amino Transferase 28 U/L (5-31); Bilirubin Total 0.7 mg/dL (0.0-1.0); Blood Urea Nitrogen 21 mg/dL (9-16); Calcium 9.9 mg/dL (8.4-10.2); Carbon Dioxide 22 mmol/L (22-29); Chloride 110 mmol/L (96-108); Cholesterol 157 mg/dL (<200); Estimated Glomerular Filt Rate 48; Glucose Fasting 174 mg/dL (60-99); HDL Cholesterol 48 mg/dL (>40); LDL Cholesterol Calculated 69 mg/dL (<100); Potassium 4.1 mmol/L (3.3-5.1); Sodium 138 mmol/L (135-145); Total Protein 7.2 g/dL (6.5-8.0); Triglycerides 203 mg/dL (<150)
[2024-04-17 12:20] LABS: Vitamin B12 518 pg/mL (200-900)
== END 2024-04-17 08:52 | disposition home or self-care (01) ==
LOC: HO.LAB 08:51
PROVIDERS: PCP Physician Assistant; Visit Provider Physician Assistant
DX: I10 Essential (primary) hypertension (principal); I25.10 Atherosclerotic heart disease of native coronary artery without angina pectoris; E11.65 Type 2 diabetes mellitus with hyperglycemia; Z79.4 Long term (current) use of insulin; E53.8 Deficiency of other specified B group vitamins; E11.9 Type 2 diabetes mellitus without complications; E78.5 Hyperlipidemia, unspecified; R80.9 Proteinuria, unspecified
CPT/HCPCS: 36415; 80053; 80061; 82043; 82570; 82607; 82746; 85027

== ENCOUNTER 2024-04-20 10:00 | Outpatient (AMB) | payer OTHER, SELFPAY ==
--- NOTE | 2024-04-20 10:43 | MHC.PC.OV ---
Vital Signs 04/20/24 10:44 Height 4 ft 6 in Weight 90 lb 2 oz BMI 21.7 BP 116/56 L Blood Pressure Location Lt brachial Position Sitting Pulse 92 Pulse Source Pulse Oximeter Temp 97.3 F Temp Source Temporal Artery Scan Pulse Oximetry (%) 99 Oxygen Delivery Method Room Air Intake Visit Reasons: 6 month follow up Boring Mill Set Up Operator Vertical Required: No Boring Mill Set Up Operator Vertical Name: Pt refused daughter interpret Accompanied by: Daughter Allergies Iodinated Contrast Media [IV CONTRAST] Allergy (Intermediate, Verified 04/20/24 10:54) SHORTNESS OF BREATH latex [LATEX] Allergy (Intermediate, Verified 04/20/24 10:54) RASH Medication List - Last Reconciled 04/20/24 by Que Good PA-C acetaminophen ER 650 mg PO Q6H PRN 30 days albuterol sulfate 90 mcg/actuation 2 puffs PO Q4-6H PRN aspirin 81 mg PO DAILY [bed pads As directed] blood sugar diagnostic (FreeStyle Lite Strips) TESTING ONCE A DAY blood-glucose meter (FreeStyle Lite Meter kit) As directed [cane As directed] dapagliflozin propanediol (Farxiga) 10 mg PO QAM [diabetic shoes with inserts As directed] [diapers As directed] insulin glargine (Lantus Solostar U-100 Insulin) 44 units subcut QAM PRN lancets (FreeStyle Lancets) testing once per day [lift chair recliner Need for lift chair recliner, has finished full course of physical therapy] mecobalamin (vitamin B12) 1,000 mcg PO DAILY 90 days metformin 1,000 mg PO BIDWMEAL metoprolol succinate ER 12.5 mg (1/2 x 25 mg) PO DAILY 90 days nitroglycerin 0.4 mg sublingual Q5M PRN 30 days omega-3 fatty acids (Fish Oil Concentrate) 1,000 mg PO DAILY pen needle, diabetic (BD Ultra-Fine Aylin Pen Needle) test once per day sacubitril-valsartan 24-26 mg (Entresto) 1 tab PO BID simvastatin 40 mg PO BEDTIME spironolactone 25 mg PO DAILY Tobacco use date assessed: 04/20/24 Fall risk assessment: No Falls in past year Last assessed Fall Risk: 04/20/24 Dental Screening Dental Screen Date: 04/20/24 Did you have a dental visit in the last 12 months?: No Did you have a dental problem in the last 6 months where you did not have access to dental care?: No Was dental information given to patient?: No (no teeth) HPI 6 month follow up HPI Details Patient is a 78 year female here today for follow-up visit. ? Patient is Ukrainian-speaking only to which most of history came from daughter. ?Patient has a past medical history significant for hypertension, type 2 diabetes, coronary artery disease, ICD placed, hyperlipidemia, lumbar spondylosis. DMII: Reports Blood sugars have been stable at home. Most recent fasting blood sugar a bit elevated at 175. Microalbuminuria has improved. Most recent A1c at 7.0 which has improved from previous. Family reports she only takes metformin at this time and has been watching her diet. Insulin has not been used for quite some time. No reports of hypoglycemic events. Will try to set patient with a continues glucose monitor for monitoring her blood sugars at ease. .. Lumbar spondylosis: Often uses a cane for ambulation assistance. Does have a lift chair needs new script and a new lift chair recliner due to currently not working. Will likely need physical therapy evaluation for lift chair recliner. .. HTN: Blood pressure today in office acceptable.? Denies any chest discomfort, shortness of breath, palpitations or headaches. She does have microalbuminuria. She is followed by financial intern .. B12 deficiency: Was given IM injections of B12 though family can not be committed to IM injections monthly. Will return back to oral B12 and will follow CBC and B12 labs. .. CAD:? Patient is followed by records management coordinator at [facility] ( Dr Pruitt) . Does have a ICD placement? .Continues on beta-latoya, has been taken off of clopidogrel. Recent echocardiogram showing severe reduced systolic function. She has been started on Entresto, Aldactone and Farxiga for her heart failure with reduced ejection fraction. Most recent potassium normal. Laboratory Tests 09/10/22 03/18/23 10/09/23 11:20 11:07 08:35 RBC Hgb Creatinine Fasting Glucose 160 H Hgb A1c (Clinic) 7.6 H Cholesterol LDL Cholesterol, C alc Vitamin B12 Folate Urine Microalbumin 25.0 10/09/23 01/08/24 01/08/24 08:39 10:52 11:14 RBC 3.88 L 3.86 L Hgb 11.4 L 11.5 L Creatinine Fasting Glucose 151 H Hgb A1c (Clinic) Cholesterol 108 LDL Cholesterol, C alc 29 Vitamin B12 Folate Urine Microalbumin 49.0 01/08/24 04/17/24 04/17/24 Unknown 09:01 10:00 RBC 3.85 L Hgb 11.1 L Creatinine 1.36 1.10 Fasting Glucose 174 H Hgb A1c (Clinic) Cholesterol 157 LDL Cholesterol, C alc 69 Vitamin B12 518 Folate 13.0 Urine Microalbumin 15.0 PFSH Medical History Incontinence Cognitive disorder Osteoarthritis Surgical History H/O heart artery stent History of pacemaker H/O angioplasty History of bilateral cataract extraction S/P trigger finger release History of tubal ligation Family History Father Past heart attack Mother Throat cancer Smoker Brother Past heart attack Brother Lung cancer Daughter Hypertension CHF (congestive heart failure) Son Diabetes Social History Housing: Apartment Alcohol intake: never Patient Tobacco Use Status: Never used Tobacco Tobacco use type: Cigarette e-Cigarette/Vaping Use: Never Used Second Hand Smoke Exposure: No service: No Current occupational status: disabled Cognitive needs: Yes Hearing needs: No Vision needs: No Questionnaire Thrive Questionnaire Date Thrive assessed: 03/18/23 AUDIT C Alcohol Use Questionnaire (AUDIT-C) 2. How many drinks containing alcohol do you have on a typical day when you are drinking?: 1 or 2 3. How often do you have six or more drinks on one occasion?: Never Total Score: 0 KAI-7 AMB Questionnaire KAI-7 Date KAI - 7 assessed: 03/18/23 Source: Developed by Drs. Josh Mensah, Rebeca Caruso, Elan Akhtar and colleagues, with an educational ha from [employer]. Review of Systems Const Denies headache(s) Eyes Denies loss of vision ENT Denies vertigo, Denies dizziness, Denies headache(s) and Denies sore throat Card Denies chest pain, Denies leg edema and Denies lightheadedness Resp Denies cough, Denies hemoptysis and Denies wheezing GI Denies abdominal pain, Denies melena, Denies constipation, Denies diarrhea and Denies vomiting Denies urinary frequency, Denies dysuria and Denies urinary urgency Musc Denies arthralgias, Denies joint swelling, Denies numbness and Denies tingling Neuro Denies Abnormal speech present, Denies behavioral changes, Denies vertigo, Denies dizziness, Denies headache(s), Denies loss of vision, Denies memory loss, Denies numbness and Denies tingling Psych Denies anxiety, Denies behavioral changes, Denies depression, Denies memory loss and Denies panic attacks Irwin/Lymph Denies easy bleeding and Denies easy bruising Aller/Immun Denies wheezing Physical exam (Primary Care) Vital Signs: Last Vital Signs Temp 97.3 F 04/20/24 10:44 Pulse 92 04/20/24 10:44 BP 116/56 L 04/20/24 10:44 Pulse Ox 99 04/20/24 10:44 Oxygen Delivery Method Room Air 04/20/24 10:44 BMI result Body Mass Index 21.7 Tobacco/Smoking Status: Tobacco use Status Tobacco use date assessed 04/20/24 04/20/24 10:49 Patient Tobacco Use Status Never used Tobacco 04/20/24 10:49 Tobacco use type Cigarette 04/20/24 10:49 e-Cigarette/Vaping Use Never Used 04/20/24 10:49 Thrive Assessment: Date of Thrive Assessment Date Thrive assessed 03/18/23 04/20/24 10:49 Const General: healthy appearing, no acute distress, alert and awake Nutritional Appearance: well nourished Orientation/consciousness: oriented to person, oriented to place and oriented to time HENMT Ears: TM's normal bilaterally General nose exam: Normal nasal mucous membranes and turbinates present Eyes Conjunctivae: conjunctivae normal Sclerae: sclerae normal Pupils: Equal, round and reactive pupils present Neck Neck: Yes no lymphadenopathy and Yes no JVD Thyroid: Thyroid normal Carotids: no bruits Resp Effort & Inspection: normal respiratory effort and not tachypneic Auscultation: no crackles, no rales, no rhonchi and no wheezes Cardio Rate: regular rate Rhythm: regular rhythm Heart sounds: no murmurs and normal S1 and S2 GI Palpation (GI): Soft to palpation, nontender, no hepatomegaly and no splenomegaly Auscultation: normal bowel sounds Skin General skin exam: no rashes or lesions noted and dry skin Neuro General: oriented to person, oriented to place and oriented to time Cranial nerves: Yes Equal, round and reactive pupils present Speech: No Abnormal speech present Gait exam (Neuro): Normal gait present Motor exam (neuro): no tremor noted Extrem Right upper extremity: full ROM Left upper extremity: full ROM Right lower extremity: full ROM; no edema Left lower extremity: full ROM; no edema Psych Mental Status: mental status grossly normal Speech and movement: Normal speech and movement present Affect: normal affect Attitude: cooperative Thought process: Normal thought process present Coding Level of Care Code Est Pt Level 4 (54744) Diagnoses Type 2 diabetes mellitus with hyperglycemia, with long-term current use of insulin E11.65; Z79.4 Diabetes mellitus complication status: with hyperglycemia Diabetes mellitus halfway insulin use: with halfway use B12 deficiency E53.8 Primary hypertension I10 Hypertension type: primary hypertension Coronary artery disease involving [place] coronary artery of [place] heart without angina pectoris I25.10 Associated angina: without angina Coronary Disease-Associated Artery/Lesion type: [place] artery [place] vs. transplanted heart: [place] heart Mixed hyperlipidemia E78.2 Hyperlipidemia type: mixed hyperlipidemia Assessment & Plan Assessment & Plan (1) DMII (diabetes mellitus, type 2): Code(s): E11.9 - Type 2 diabetes mellitus without complications Category: Medical Qualifiers: Diabetes mellitus complication status: with hyperglycemia Diabetes mellitus truck terminal manager insulin use: with halfway use Qualified Code(s): E11.65 - Type 2 diabetes mellitus with hyperglycemia; Z79.4 - MCFP (current) use of insulin Plan: Patient's type 2 diabetes well controlled with current dose of metformin. Does have insulin available to her though has not been using this for quite some time. Has also been working on dietary modifications. Goal A1c is to be below 7.5. Will try to set patient up with a [employer] Jerilyn 3 for ease of checking her blood sugars (2) B12 deficiency: Code(s): E53.8 - Deficiency of other specified B group vitamins Category: Medical Plan: Most recent B12 and folate levels checked were normal. She continues on p.o. supplementation of B12. (3) Hypertension: Code(s): I10 - Essential (primary) hypertension Category: Medical Qualifiers: Hypertension type: primary hypertension Qualified Code(s): I10 - Essential (primary) hypertension Plan: Patient's blood pressure acceptable today in office. Will continue on her current dose metoprolol. Cardiology is continuing patient on entresto , Aldactone and Farxiga for her Congestive heart failure with reduced ejection fraction. Most recent potassium normalized No overt signs of Congestive heart failure at physical exam at this point. (4) CAD (coronary artery disease): Code(s): I25.10 - Atherosclerotic heart disease of [place] coronary artery without angina pectoris Category: Medical Qualifiers: Associated angina: without angina Coronary Disease-Associated Artery/Lesion type: [place] artery [place] vs. transplanted heart: [place] heart Qualified Code(s): I25.10 - Atherosclerotic heart disease of [place] coronary artery without angina pectoris Plan: As per HPI patient is followed by Cardiology at [facility]. Does have an ICD placed Optimal LDL to be below 70 (5) HLD (hyperlipidemia): Code(s): E78.5 - Hyperlipidemia, unspecified Category: Medical Qualifiers: Hyperlipidemia type: mixed hyperlipidemia Qualified Code(s): E78.2 - Mixed hyperlipidemia Plan: Most recent lipid panel showing good control over total cholesterol and LDL. She will continue simvastatin 40 mg with goal optimal LDL to be below 70 Orders: Orders Comprehensive [place]. Panel Fast Today E11.65 - Type 2 diabetes mellitus with hyperglycemia, Z79.4 - truck terminal manager (current) use of insulin Complete Blood Count no Diff Today E11.65 - Type 2 diabetes mellitus with hyperglycemia, Z79.4 - truck terminal manager (current) use of insulin Hemoglobin A1c Today E11.65 - Type 2 diabetes mellitus with hyperglycemia, Z79.4 - MCFP (current) use of insulin Lipid Panel Today E78.2 - Mixed hyperlipidemia Medications: New blood-glucose meter,continuous (FreeStyle Jerilyn 3 [place]) As directed 1 ea 0RF E11.65 - Type 2 diabetes mellitus with hyperglycemia, Z79.4 - MCFP (current) use of insulin blood-glucose sensor (FreeStyle Jerilyn 3 Sensor device) As directed 1 ea 6RF E11.65 - Type 2 diabetes mellitus with hyperglycemia, Z79.4 - MCFP (current) use of insulin Refilled albuterol sulfate 90 mcg/actuation 2 puffs PO Q4-6H PRN 8.5 ea 3RF for muscle spasm E53.8 - Deficiency of other specified B group vitamins Patient Instructions: Goal: A1c to be below 7.5, LDL optimally below 70 Barriers: Adherence to physical activity and healthy eating habits
[2024-04-20 10:44] VITALS: BP 116/56; PULSE 92; TEMP 36.3; O2SAT 99; BMI 21.7
== END 2024-04-20 11:08 | disposition home or self-care (01) ==
PROVIDERS: PCP Physician Assistant; Visit Provider Physician Assistant
DX: E11.65 Type 2 diabetes mellitus with hyperglycemia (principal); Z79.4 Long term (current) use of insulin; E53.8 Deficiency of other specified B group vitamins; I10 Essential (primary) hypertension; I25.10 Atherosclerotic heart disease of native coronary artery without angina pectoris; E78.2 Mixed hyperlipidemia

== ENCOUNTER → 2024-04-20 10:00 | Outpatient (BNVA) | payer OTHER, SELFPAY | PROVIDERS: PCP Physician Assistant; Visit Provider Physician Assistant | DX: E11.65 Type 2 diabetes mellitus with hyperglycemia (principal); E53.8 Deficiency of other specified B group vitamins; I10 Essential (primary) hypertension; I25.10 Atherosclerotic heart disease of native coronary artery without angina pectoris; E78.2 Mixed hyperlipidemia; Z79.4 Long term (current) use of insulin | CPT/HCPCS: 99212 ==

== ENCOUNTER 2024-08-10 09:37 | Outpatient (REF) | payer OTHER, SELFPAY ==
[2024-08-10 09:50] LABS: MANUAL DIFF FLAG NO
--- OUTSIDE RECORDS SUMMARY | 2024-08-10 10:20 | XMS_ITS | Clinical Summary ---
Author Organization [facility] Facility Address [address] [address] Care Team Providers Care Material Requirements Planning Manager Name Role Phone Que Good Primary Care Provider [phone] Allergies Active Allergy Reactions Criticality Noted Date [...] wit h diabetic chronic kidney disease 01/21/2023 Family History Relation Status Comments Father Mother [...] Office Visit [facility] [address] [place] [address] [place] [address] Bryson Navarro MD [address] [facility] [address] [place] [address] Health Maintenance Due Date Last Done Comments Pneumococcal Vaccine: 50+ Ye ars (1 of 2 - PCV) 10/24/1964 Diabetes: Hemoglobin A1C 01/21/2023 Diabetes: Ophthalmology Exam 01/21/2023 Diabetes: Pedal Pulse Checked 01/21/2023 Diabetes: Sensory Foot Exam 01/21/2023 Diabetes: Visual Foot Exam 01/21/2023 Influenza Vaccine (Season Ended) 2024 Hepatitis B Vaccine Aged Out No longe r eligible based on patient's age to complete this topic Insurance [facility] ([id number]) [facility] ([id number]) Care Teams Material Requirements Planning Manager Relationship Specialty Start Date End Date Que Good PA [address] [place] [address], [address] [place] [address] PCP - General Physician Court Manager 08/14/21
[2024-08-10 11:02] LABS: Basophils Percent Auto 0.2 % (0-2); Eosinophils Percent Auto 0.7 % (0-4); Hematocrit 34.2 % (37.0-47.0); Hemoglobin 10.9 g/dl (12.0-16.0); Imm Gran Abs Auto 0.01 X10*3/uL (0.00-0.03); Imm Gran Pct Auto 0.2 % (0.0-0.4); Lymphocytes Absolute Auto 2.1 X10*3/uL (1.2-4.9); Lymphocytes Percent Auto 33.6 % (20-40); Mean Corpuscular HGB Conc 31.9 g/dl (31.0-35.0); Mean Platelet Volume 10.5 fL (9.4-12.3); Monocytes Absolute Auto 0.5 X10*3/uL (0.1-1.2); Neutrophils Absolute Auto 3.5 x10*3/uL (2.0-8.3); Neutrophils Percent Auto 57.3 % (45-73); Platelet Count 233 X10*3/uL (160-400); Red Blood Count 3.76 X10*6/uL (4.20-5.50); White Blood Count 6.1 X10*3/uL (4.8-10.8)
[2024-08-10 11:15] LABS: Appearance Urine Clear; Color Urine Yellow; Glucose Urine UA >=1000 mg/dL (Negative); Leukocyte Esterase Urine Negative (Negative); Nitrite Urine Negative (Negative); PH 5.5 (5.0-9.0); Specific Gravity - Urine >= 1.030 (1.005-1.025); UMIC TRIGGER UA YES; Urine Blood Negative (Negative); Urine Ketones Negative (Negative); Urine Protein Negative (Neg-Trace)
[2024-08-10 11:18] LABS: Bacteria Urine None Seen (None Seen); Hyaline Casts Urine 0-2 /LPF (0-2); RBC Urine 0-2 /HPF (0-2); Squamous Epithelial Cell Urine 0-2 /HPF (0-2); WBC Urine 0-5 /HPF (0-5)
[2024-08-10 11:54] LABS: Parathyroid Hormone Intact 308.1 pg/mL (8.7-77.1)
[2024-08-10 11:55] LABS: Albumin Level 4.6 g/dL (3.5-5.0); Anion Gap 15 (12-20); Blood Urea Nitrogen 23 mg/dL (9-16); Calcium 9.6 mg/dL (8.4-10.2); Carbon Dioxide 23 mmol/L (22-29); Chloride 109 mmol/L (96-108); Estimated Glomerular Filt Rate 39; Magnesium 1.9 mg/dL (1.6-2.6); Phosphorus 3.4 mg/dL (2.7-4.5); Sodium 142 mmol/L (135-145)
[2024-08-10 12:10] LABS: Creatinine Urine 59.66 mg/dL; Total Protein Urine Random < 7 mg/dL (<12)
== END 2024-08-10 09:38 | disposition home or self-care (01) ==
LOC: HO.LAB 09:37
PROVIDERS: PCP Physician Assistant; Visit Provider Internal Medicine Nephrology
DX: N18.32 Chronic kidney disease, stage 3b (principal); E11.22 Type 2 diabetes mellitus with diabetic chronic kidney disease; N25.0 Renal osteodystrophy
CPT/HCPCS: 36415; 80051; 81001; 82040; 82306; 82310; 82565; 82570; 83735; 83970; 84100; 84156; 84520; 85025

== ENCOUNTER 2024-11-04 08:24 | Outpatient (REF) | payer OTHER, SELFPAY ==
--- OUTSIDE RECORDS SUMMARY | 2024-11-04 08:46 | XMS_ITS | Patient Health Record ---
Author Organization [facility] Address [address] [place] [address] Care Team Providers Care Boomswing Operator Name Role Phone Que Good Primary Care Provider Unavailab Ashlee Tomlin Unavailable [phone] Allergies Allergen (clinical drug ingredient) Drug/Non Drug Allergy documented on EMR Reaction Allergy Type Onset Date Status Latex Latex (uncoded) rash Allergy Acti ve Iodinated contrast media (substance) Iodinated Contrast Media shortness of breath Drug Allergy Active Results Component Value Reference Range Notes HEMOGLOBIN A1C (GLYCOHEMOGLO BIN) Reviewed date:10/29/2024 01:48:19 PM Interpretation: Performing Lab: Notes/Report: HEMOGLOBIN A1C % (HH) 7.0 Reason For Referral No Information Medications Medication SIG (Take, Route, Frequency, Duration) Notes Start Date End Date Status Spironolactone 25 MG 1 tablet Orally Onc e a day Active Tylenol 8 Hour 650 MG 2 tablets as neede d Orally every 8 hrs Active Lokelma 5 GM 1 packet dissolved i n water Orally Active Farxiga 10 MG 1 tablet Orally Once a day Active Metoprolol Succinate Active Aspirin 81 MG 1 tablet Orally Once a day Active Simvastatin 40 MG 1 tablet in the even ing Orally Once a day Active Ammonium Lactate 12 % 1 application Exte rnally to affected areas of dry skin to feet except for between the toes Twice a day; Duration: 30 days Active Nitroglycerin 0.4 MG 1 tablet under the tongue and allow to dissolve as needed. Take every 5 minutes up to 3 times if chest pain persists Sublingual Three times a day Active [place] 3 Active Lantus SoloStar 100 UNIT/ML as directed Subcutaneous Active Entresto 97-103 MG 1 tablet Orally Twic e a day Active Albuterol Sulfate 108 (90 Base) MCG/ACT 1 puff as needed Inhalation every 4 hrs Active metFORMIN HCl 1000 MG 1 tablet with a me al Orally Once a day Active Immunizations Vaccine Route Administration Date Status Comme nts Influenza Unknown 12/11/2023 Administered Social History Tobacco Use: Social History Observation Description Date Details (start date - stop date) Never Smoker NA - NA Tobacco use other than smoking: Question Answer Notes Are you an other tobacco user? No Tobacco Control (Standard) Question Answer Notes Tobacco use: Nonsmoker Additional Findings: Tobacco non-user Current no nsmoker AUDIT-C (Standard) Question Answer Notes Did you have a drink containing alcohol in the p ast year? No Points 0 Interpretation Negative Problems Problem Type SNOMED Code ICD Code Onset Dates Problem Status W/U Status Risk Notes Problem Polyneuropathy due to type 2 diabetes mellitus (417211333) Type 2 diabetes mellitus with diabetic polyneuropathy (E11.42) Active confirmed Vital Signs Blood pressure diastolic 65 mm Hg 10/29/2024 Height 4 ft 6in in 10/29/2024 Blood pressure systolic 128 mm Hg 10/29/2024 Weight 93 lbs 10/29/2024 BMI 22.42 kg/m2 10/29/2024 Procedures Procedure Date Ordered Date Performed Result Body Sit e 41713-YNLAXUS NAIL, 6 OR MORE 10/29/2024 N/A 31417-[id number] SKIN LESIONS, 2 TO 4 10/29/2024 N/A Encounters Encounter Location Date Provider Diagnosis [facility] [place] [address] [place] [address] 10/29/2024 Ashlee Dan Type 2 diabetes mellitus with diabetic polyneuropathy E11.42 ; Tinea unguium B35.1 and Xerosis of skin L85.3 Assessments Encounter Date Diagnosis (ICD Code) Assessment Notes Treatment Notes Treatment Clinical Notes Section Notes 10/29/2024 Type 2 diabetes mellitus with diabetic polyneuropathy (ICD-10 - E11.42) 10/29/2024 Tinea unguium (ICD-10 - B35.1) 10/29/2024 Xerosis of skin (ICD-10 - L85.3) Plan Of Treatment Pending Test Test Name Order Date [id number]-[id number] NAIL, 6 OR MORE 10/29/2024 [id number] SKIN LESIONS, 2 TO 4 10/30/19 25 Next Appt Details Provider Name:Ashlee Heredia kevin, 02/01/2025 09:30:00 AM, [address] [place], [address], Insurance Providers Payer Name Payer Address Payer Phone Subscriber Number Group Number Insured Name Patient Relationship to Insured Coverage Start Date Coverage End Date [facility] [employer] Claims [address] [place] [id number] Colon, Shabana Self - patient is the insured Medical (General) History Medical History History ICD Code Anemia Arthritis asthma Back,Hip,and Knee pain Diabetic Headaches/Migraines Heart disease Kidney disease Osteoporosis Pacemaker Surgical History Surgery Date(Month/Year) cardiac pacemeker 10/2017
--- OUTSIDE RECORDS SUMMARY | 2024-11-04 08:46 | XMS_ITS | Encounter Summary ---
Author Organization [facility] Address [address] [address] Phone Care Team Providers Care Group Segment Consultant Name Role Phone Que Good Primary Care Provider [phone] Encounter Details Date Type Department Care Team (Late st Contact Info) Description 08/22/2024 Office Communication [facility] [address] [facility] [address] [place] [address] Bryson Navarro MD [address] [address] Social History Tobacco Use Types Packs/Day Years Used Date Smoking Tobacco: Never Smokeless Tobacco: Never Alcohol Use Standard Drinks/Week Comments Never 0 (1 standard drink = 0.6 oz pur e alcohol) Comments Unknown Sex and Gender Information Value Date Recorded Sex Assigned at Not on file Legal Sex Female 10:26 AM EDT Gender Identity Not on file Sexual Orientation Not on file documented as of this encounter Miscellaneous Notes * Telephone Encounter - Bryson Navarro MD - 08/22/2024 10:59 PM EDT Pls call pt and get updated med list and also tell her I sent Rx to her pharmacy to start taking new med calcitriol documented in this encounter Plan of Treatment Upcoming Encounters Date Type Department Care Team (Late st Contact Info) Description 02/15/2025 3:00 PM EST Office Visit [facility] [address] [place] [address] Bryson Navarro MD [address] [address] documented as of this encounter Visit Diagnoses Not on filedocumented in this encounter Care Teams Group Segment Consultant Relationship Specialty Start Date End Date Que Good PA [address] [place] [address], [address] [place], [place] [id number] PCP - General Physician Boat Dock Operator 08/14/21 documented as of this encounter
--- OUTSIDE RECORDS SUMMARY | 2024-11-04 08:46 | XMS_ITS | Clinical Summary ---
Author Organization [facility]. 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 Phone Que Good Primary Care Provider [phone] Allergies Active Allergy Reactions Criticality Noted Date Comments Iodinated Contrast Media Itching,Other (see comments) High 12/25/2017 Medications simvastatin (ZOCOR) 40 MG tablet 3 Active metFORMIN (GLUCOPHAGE) 1000 MG tablet TOME LADAN TABLETA DOS VECES AL D A WITH FOOD 3 Active Lantus SoloStar 100 UNIT/ML injection INJECT 44 UNITS SUBCUTANEOUSLY EVERY MORNING FOR 30 DAYS 3 Active Aspirin Low Dose 81 MG EC tablet TOME LADAN TABLETA TODOS LOS D 3 Active acetaminophen (TYLENOL 8 HOUR) 650 MG 8 hr tablet Take 650 mg by mouth Active metoprolol succinate XL (TOPROL XL) 25 MG 24 hr tablet TAKE 1/2 TABLET (12.5 MG) BY MOUTH FOR 90 DAYS 4 Active albuterol HFA (ProAir HFA) 108 (90 Base) MCG/ACT inhaler Inhale 9 Active Entresto 24-26 MG per tablet Take 1 tablet by mouth Active omega-3 acid ethyl esters (LOVAZA) 1 g capsule Take 300 g by mouth in the morning and 300 g in the evening. Active Farxiga 10 MG tablet Take by mouth 1 (one) time each day Active Lokelma 5 g pack MIX 1 PACK/PACKET IN LIQUID AND TAKE BY MOUTH DAILY DO NOT TAKE WITHIN 2 HOURS OF OTHER MEDICATIONS Active spironolactone (ALDACTONE) 25 MG tablet See Instructions, 1 tablet By Mouth Daily, # 30 tablet, Refills 5, Tot. Refills 5, Maintenance, 08/12/24 9:18:00 AM EDT, Instructions Replace Required Details, Route to Pharmacy Electronically, [facility]/pharmacy #[id number], dose increase, 150, cm, 08/12/24 9:07:00 EDT, Height 5 Active calcitriol (Rocaltrol) 0.25 MCG capsule Take 1 capsule (0.25 mcg total) by mouth every other day 45 capsule 5 025 Active Active Problems Problem Noted Date Diagnosed [...] Encounters Date Type Department Care Team Description 08/22/2024 Office Communication [facility] [address] [id number] Bryson Navarro MD 08/22/2024 Office Communication [facility] [address] [address] Bryson Navarro MD 08/17/2024 3:00 PM EDT Office Visit [facility] [address] [place] [address] Bryson Navarro MD Stage 3b chronic kidney disease (HCC) (Primary Dx); Type 2 diabetes mellitus with diabetic chronic kidney disease (HCC); Renal osteodystrophy 08/10/2024 Orders Only [facility] [address] [address] Bryson Navarro MD from Last 3 Months Family History Relation [...] Sign Reading Time Taken Comments Blood Pressure 110/62 08/17/2024 2:48 PM EDT Pulse 64 02/03/2024 1:45 PM EST Temperature - - Respiratory Rate - - Oxygen Saturation 98% 02/03/2024 1:45 PM EST Inhaled Oxygen Concentration - - Weight 43.2 kg (95 lb 3.2 oz) 08/17/2024 2:48 PM EDT Height - - Body Mass Index - - Plan of Treatment Upcoming Encounters Date Type Department Care Team (Late st Contact Info) Description 02/15/2025 3:00 PM EST Office Visit [facility] [address] [place] [address] [place] [phone] Bryson Navarro MD [address] [facility] [address] [place] [address] Health Maintenance Due Date Last Done Comments Pneumococcal Vaccine: 50+ Ye ars (1 of 2 - PCV) 10/24/1964 Diabetes: Hemoglobin A1C 01/21/2023 Diabetes: Ophthalmology Exam 01/21/2023 Diabetes: Pedal Pulse Checked 01/21/2023 Diabetes: Sensory Foot Exam 01/21/2023 Diabetes: Visual Foot Exam 01/21/2023 Influenza Vaccine (#1) 2024 Hepatitis B Vaccine Aged Out No longe r eligible based on patient's age to complete this topic Procedures Procedure Name Priority Date/Time Associated Diagnosis Comments PROTEIN / CREATININE RATIO, URINE Routine 08/10/2024 10:57 AM EDT URINALYSIS WITH MICROSCOPIC Routine 08/10/2024 10:57 AM EDT VITAMIN D 25 HYDROXY Routine 08/10/2024 9:48 AM EDT ALBUMIN Routine 08/10/2024 9:48 AM EDT MAGNESIUM Routine 08/10/2024 9:48 AM EDT PHOSPHATE ( PHOSPHORUS) Routine 08/10/2024 9:48 AM EDT CALCIUM Routine 08/10/2024 9:48 AM EDT CREATININE, BLOOD Routine 08/10/2024 9:4 8 AM EDT BUN Routine 08/10/2024 9:48 AM EDT ELECTROLYTE PANEL Routine 08/10/2024 9:4 8 AM EDT PTH, INTACT (HC) Routine 08/10/2024 9:48 AM EDT CBC AND DIFFERENTIAL Routine 08/10/2024 9:48 AM EDT from Last 3 Months Results * Protein, Total, Random Urine w/Creatinine (Protein/Creat Ratio) (08/10/2024 10:57 AM EDT) Creatinine, Urine 59.66 mg/dL See order comments Protein Urine Random <7 <12 mg/dL See order comments Protein/Creatin ine Ratio, Urine TNP <0.2 See order comments Comment: Unable to calculate urine protein creatinine ratio due to low creatinine or protein result. 08/10/2024 10:5 7 AM EDT 08/10/2024 10:57 AM EDT us Bryson Navarro MD LAB URINE ORDERABLES Final Re sult [place] See order comments [place] [address] * (ABNORMAL) Urinalysis with microscopic (08/10/2024 10:57 AM EDT) Color Urine Yellow See orde r comments Appearance Urine Clear See order comments pH Urine 5.5 5.0 - 9.0 See order comments Glucose Urine >=1000(A) Negative mg/dL See order comments Blood, Urine Negative Negative See ord er comments Specific [place] Urine >=1.030(H) 1.005 - 1.025 See order comments Protein Urine Negative Neg-Trace mg/dL See order comments Ketones, Urine Negative Negative mg/dL See order comments Nitrite, Urine Negative Negative See o rder comments Leukocyte Esterase Urine Negative Negative See order comments RBC, Urine 0-2 0 - 2 /HPF See orde r comments WBC 0-5 0 - 5 /HPF See order comments Squamous Epithelial, Urine 0-2 0 - 2 /HPF See order comments Bacteria, Urine None Seen None Seen See order comments Hyaline Casts, Urine 0-2 0 - 2 /LPF See order comments 08/10/2024 10:5 7 AM EDT 08/10/2024 10:57 AM EDT Bryson Navarro MD LAB URINE ORDERABLES Final Re sult Performing Organization Address [facility] de Phone Number [place] See order comments [place] [address] * Creatinine (08/10/2024 9:48 AM EDT) Creatinine Serum 1.32 0.5 - 1.4 mg/dL See order comments eGFR (Calc) 39 See orde r comments Comment: Chronic Kidney Disease: Estimated GFR < 60 mL/min/1.73m2 Severe Kidney Disease: Estimated GFR < 15 mL/min/1.73m2 08/10/2024 9:48 AM EDT 08/10/2024 9:48 AM EDT us Bryson Navarro MD LAB BLOOD ORDERABLES Final Re sult Performing Organization Address [facility] de Phone Number [place] See order comments [place] [address] * (ABNORMAL) PTH, Intact (08/10/2024 9:48 AM EDT) Parathyroid Hormone, Intact 308.1(H) 8.7 - 77.1 pg/mL See order comments 08/10/2024 9:48 AM EDT 08/10/2024 9:48 AM EDT Bryson Navarro MD LAB [id number] SOLICITED RESULTS Final Result Performing Organization Address [facility] de Phone Number [place] See order comments [place] [address] * (ABNORMAL) Vitamin D 25 Hydroxy (08/10/2024 9:48 AM EDT) Vitamin D, 25-Hydroxy 17.0(L) >30 ng/mL See order comments Comment: Health Based Reference Values* < 20 ng/mL Deficient 20-30 ng/mL Insufficient > 30 ng/mL Sufficient *Sal RODRIGUEZ. N Engl J Med. 2007;357:266-280 There is no well-established upper level of normal vitamin D levels. Some laboratories use 50 ng/mL as an upper limit of normal. However, toxicity is patient-dependent and may occur at any level. Careful correlation with the patient's presentation is necessary and, if there is concern for vitamin D toxicity, treatment should be considered irrespective of the serum level. Care must be taken in interpreting Vitamin D results from different laboratories and methodologies. Published data demonstrated that results from patients undergoing hemodialysis may show a negative bias when tested with various automated 25-OH vitamin D assays when compared to LC-MS/MS. When testing samples from patients whose predominant form of Vitamin D is Vitamin D2, such as patients receiving Vitamin D2 supplementation, results that are subtherapeutic should be confirmed with another method such as LC-MS/MS. 08/10/2024 9:48 AM EDT 08/10/2024 9:48 AM EDT Bryson Navarro MD LAB BLOOD ORDERABLES Final Re sult Performing Organization Address [facility] Co de Phone Number [facility] See order comments [place] [address] * (ABNORMAL) CBC and Differential (08/10/2024 9:48 AM EDT) WBC 6.1 4.8 - 10.8 X10*3/uL See order comments RBC 3.76(L) 4.20 - 5.50 X10*6/uL See order comments Hgb 10.9(L) 12.0 - 16.0 g/dl See order comments Hematocrit 34.2(L) 37.0 - 47.0 % See order comments MCV 91.0 80.0 - 98.0 fL See order comments MCH 29.0 27.0 - 33.0 pg See order comments MCHC 31.9 31.0 - 35.0 g/dl See order comments RDW 13.0 11.0 - 16.0 % See order comments Platelets 233 160 - 400 X10*3/uL See order comments MPV 10.5 9.4 - 12.3 fL See order comments Neutrophils % Auto 57.3 45 - 73 % See order comments Immature Granulocytes 0.2 0.0 - 0.4 % See order comments Lymphocytes Relative 33.6 20 - 40 % See order comments Monocytes 8.0 2 - 11 % See order comments Eosinophils Relative 0.7 0 - 4 % See order comments Basophils Relative 0.2 0 - 2 % See order comments nRBC Count 0.0 0.0 - 0.2 /100WBC See order comments Neutrophils Absolute 3.5 2.0 - 8.3 x10*3/uL See order comments Immature Grans (Absolute) 0.01 0.00 - 0.03 X10*3/uL See order comments Lymphocytes Absolute 2.1 1.2 - 4.9 X10*3/uL See order comments Monocytes Absolute 0.5 0.1 - 1.2 X10*3/uL See order comments Eosinophils Absolute 0.0 0.0 - 0.4 X10*3/uL See order comments Basophils Absolute 0.0 0.0 - 0.2 X10*3/uL See order comments NRBC Absolute 0.000 0.0 - 0.012 X10*3/uL See order comments 08/10/2024 9:48 AM EDT 08/10/2024 9:48 AM EDT us Bryson Navarro MD LAB BLOOD ORDERABLES Final Re sult Performing Organization Address [facility] de Phone Number [place] See order comments [place] [address] * (ABNORMAL) BUN (08/10/2024 9:48 AM EDT) BUN 23(H) 9 - 16 mg/dL See order comments 08/10/2024 9:48 AM EDT 08/10/2024 9:48 AM EDT us Bryson Navarro MD LAB BLOOD ORDERABLES Final Re sult Performing Organization Address [facility] de [facility] See order comments [place] [address] * Phosphorus (08/10/2024 9:48 AM EDT) Phosphorus, Serum 3.4 2.7 - 4.5 mg/dL See order comments 08/10/2024 9:48 AM EDT 08/10/2024 9:48 AM EDT us Bryson Navarro MD LAB BLOOD ORDERABLES Final Re sult Performing Organization Address [facility] de Phone Number [place] See order comments [place] [address] * Magnesium (08/10/2024 9:48 AM EDT) Magnesium 1.9 1.6 - 2.6 mg/dL See order comments 08/10/2024 9:48 AM EDT 08/10/2024 9:48 AM EDT us Bryson Navarro MD LAB BLOOD ORDERABLES Final Re sult Performing Organization Address [facility] de Phone Number [place] See order comments [place] [address] * Calcium (08/10/2024 9:48 AM EDT) Calcium 9.6 8.4 - 10.2 mg/dL See order comments 08/10/2024 9:48 AM EDT 08/10/2024 9:48 AM EDT Bryson Navarro MD LAB BLOOD ORDERABLES Final Re sult Performing Organization Address [facility] Co de Phone Number [place] See order comments [place] [address] * Albumin (08/10/2024 9:48 AM EDT) Albumin 4.6 3.5 - 5.0 g/dL See order comments 08/10/2024 9:48 AM EDT 08/10/2024 9:48 AM EDT Bryson Navarro MD LAB BLOOD ORDERABLES Final Re sult Performing Organization Address [facility] Co de Phone Number [place] See order comments [place] [address] * (ABNORMAL) Electrolyte panel (08/10/2024 9:48 AM EDT) Sodium 142 135 - 145 mmol/L See order comments Potassium 5.0 3.3 - 5.1 mmol/L See order comments Chloride 109(H) 96 - 108 mmol/L See order comments Bicarbonate (CO2) 23 22 - 29 mmol/L See order comments Anion Gap 15 12 - 20 See order comments 08/10/2024 9:48 AM EDT 08/10/2024 9:48 AM EDT Bryson Navarro MD LAB BLOOD ORDERABLES Final Re sult Performing Organization Address [facility] Co de Phone Number [place] See order comments [place] [address] from Last 3 Months Insurance [facility] ([id number]) [facility] ([id number]) Care Teams Industrial Machinery Mechanic Relationship Specialty Start Date End Date Que Good PA [address] [facility], [address] [place], [place] [id number] PCP - General Physician Scale Tester 08/14/21
--- OUTSIDE RECORDS SUMMARY | 2024-11-04 08:46 | XMS_ITS | Patient Health Record ---
Author Organization [facility] Billing Info Address [address] [place] [address] Care Team Providers Care Chief Librarian Branch Name Role Phone PURVI LUCAS Unavailable [phone] Tremayne Hatch Unavailable Unavailable Reason For Referral No Information Plan Of Treatment No Information Insurance Providers Payer Name Payer Address Payer Phone Subscriber Number Group Number Insured Name Patient Relationship to Insured Coverage Start Date Coverage End Date [facility] NON HMO [address] [address] [facility] [place] [place] [id number] [phone] [id number] [facility] Shabana Baron Self - patient is the insured [address] [facility] [address] [place], [place] [id number] [phone] [id number] Shabana Baron Self - patient is the insured
[2024-11-04 09:19] LABS: Hematocrit 35.4 % (37.0-47.0); Hemoglobin 11.2 g/dl (12.0-16.0); Mean Corpuscular HGB Conc 31.6 g/dl (31.0-35.0); Mean Corpuscular Hemoglobin 28.0 pg (27.0-33.0); Mean Corpuscular Volume 88.5 fL (80.0-98.0); NRBC Abs Auto 0.000 X10*3/uL (0.0-0.012); NRBC Pct Auto 0.0 /100WBC (0.0-0.2); Platelet Count 218 X10*3/uL (160-400); Red Blood Count 4.00 X10*6/uL (4.20-5.50); White Blood Count 5.9 X10*3/uL (4.8-10.8)
[2024-11-04 09:24] LABS: Hemoglobin A1C 212.6749 umol/L; Total Hemoglobin (HGBA1C) 2986.4220 umol/L
[2024-11-04 09:40] LABS: Alanine Aminotransferase 12 U/L (0-31); Albumin Level 4.6 g/dL (3.5-5.0); Alkaline Phosphatase 66 U/L (39-117); Anion Gap 11 (12-20); Aspartate Amino Transferase 21 U/L (5-31); Blood Urea Nitrogen 23 mg/dL (9-16); Calcium 9.6 mg/dL (8.4-10.2); Carbon Dioxide 23 mmol/L (22-29); Chloride 108 mmol/L (96-108); Cholesterol 123 mg/dL (<200); Estimated Glomerular Filt Rate 38; HDL Cholesterol 39 mg/dL (>40); Potassium 4.4 mmol/L (3.3-5.1); Sodium 138 mmol/L (135-145); Total Protein 7.2 g/dL (6.5-8.0); Triglycerides 231 mg/dL (<150)
[2024-11-04 11:59] LABS: Microalbum/Creatinine Ratio Ur 41.4 ug/mg cr (<30)
== END 2024-11-04 08:25 | disposition home or self-care (01) ==
LOC: HO.LAB 08:24
PROVIDERS: PCP Physician Assistant; Visit Provider Physician Assistant
DX: E11.65 Type 2 diabetes mellitus with hyperglycemia (principal); Z79.4 Long term (current) use of insulin; E78.2 Mixed hyperlipidemia; R80.9 Proteinuria, unspecified
CPT/HCPCS: 36415; 80053; 80061; 82043; 82570; 83036; 85027

== ENCOUNTER 2024-11-16 09:46 | Outpatient (AMB) | payer OTHER, SELFPAY ==
--- NOTE | 2024-11-16 10:02 | A.OFFPC_ITS ---
Vital Signs 11/16/24 10:04 Height 4 ft 6 in Weight 92 lb 6 oz BMI 22.3 BP 110/70 Blood Pressure Location Lt brachial Position Sitting Pulse 57 Pulse Source Pulse Oximeter Temp 96.8 F Temp Source Temporal Artery Scan Pulse Oximetry (%) 98 Oxygen Delivery Method Room Air Intake Visit Reasons: Annual Exam Intake Note: Patient is here today for a physical. Pediatric Physician Required: No Aviation Electronics Technician: Present Accompanied by: Daughter Allergies Iodinated Contrast Media (IV CONTRAST) Allergy (Intermediate, Verified 11/16/24 10:34) SHORTNESS OF BREATH latex (LATEX) Allergy (Intermediate, Verified 11/16/24 10:34) RASH Medication List - Last Reconciled 11/16/24 by Que Good PA-C acetaminophen ER 650 mg PO Q6H PRN 30 days albuterol sulfate 90 mcg/actuation 2 puffs PO Q4-6H PRN aspirin 81 mg PO DAILY [bed pads As directed] blood sugar diagnostic (FreeStyle Lite Strips) TESTING ONCE A DAY blood-glucose meter (FreeStyle Lite Meter kit) As directed blood-glucose sensor (FreeStyle Jerilyn 3 Sensor device) As directed blood-glucose,canvas cutter machine,cont (FreeStyle Jerilyn 3 Trezevant) As directed calcitriol 0.25 mcg PO 3XW [cane As directed] dapagliflozin propanediol (Farxiga) 10 mg PO QAM [diabetic shoes with inserts As directed] [diapers As directed] insulin glargine (Lantus Solostar U-100 Insulin) 44 units (0.44 mL) subcut QAM PRN lancets (FreeStyle Lancets) testing once per day [lift chair recliner Need for lift chair recliner, has finished full course of physical therapy] mecobalamin (vitamin B12) 1,000 mcg PO DAILY 90 days metformin 1,000 mg PO BIDWMEAL metoprolol succinate ER 12.5 mg (1/2 x 25 mg) PO DAILY 90 days nitroglycerin 0.4 mg sublingual Q5M PRN 30 days omega-3 fatty acids (Fish Oil Concentrate) 1,000 mg PO DAILY pen needle, diabetic (BD Ultra-Fine Aylin Pen Needle) test once per day sacubitril-valsartan 24-26 mg (Entresto) 1 tab PO BID simvastatin 40 mg PO BEDTIME sodium zirconium cyclosilicate (Lokelma) 5 grams PO DAILY Tobacco use date assessed: 11/16/24 Fall risk assessment: No Falls in past year Last assessed Fall Risk: 11/16/24 Dental Screening Dental Screen Date: 04/20/24 [facility] Annual Exam HPI Details Patient is a 79year female here today for a routine annual physical. ? Patient is Jamaican-speaking only to which most of history came from daughter. ?Patient has a past medical history significant for hypertension, type 2 diabetes, coronary artery disease, ICD placed, hyperlipidemia, lumbar spondylosis. DMII: Reports Blood sugars have been stable at home. Microalbuminuria has improved. A1c at 8.7. Family reports she only takes metformin at this time and has been watching her diet. Does not usually use her insulin until blood sugars III 100. She is kind of adverse to using insulin due to injection. No reports of hypoglycemic events. Will try to set patient with a continues glucose monitor for monitoring her blood sugars at ease. .. Has a history of hyperkalemia : Has been on a regular regimen of lokelma and most recent potassiums seem to be stable. .. Lumbar spondylosis: Often uses a cane for ambulation assistance. Does have a lift chair needs new script and a new lift chair recliner due to currently not working. Patient and family are asking for a Rollator walker to help with ambulation assistance and reduce her fall risk. .. HTN: Blood pressure today in office acceptable.? Denies any chest discomfort, shortness of breath, palpitations or headaches. She does have microalbuminuria. She is followed by studio receptionist .. B12 deficiency: Will return back to oral B12 and will follow CBC and B12 labs. .. CAD:? Patient is followed by insulation cupola operator at [facility] ( Dr Pruitt) . Does have a ICD placement? .Continues on beta-latoya, has been taken off of clopidogrel. Recent echocardiogram showing severe reduced systolic function. She has been started on Entresto, Aldactone and Farxiga for her heart failure with reduced ejection fraction. Most recent potassium normal. Colorectal cancer screening: cologaurd done in 2023 - neg - no further screening as needed due to age Mammogram: Mammogram done in May 2023- needed repeat Vaccines: Up-to-date tetanus, shingles, pneumonia and COVID vaccine, utd with Td [facility] Medical History Incontinence Cognitive disorder Osteoarthritis Surgical History H/O heart artery stent History of pacemaker H/O angioplasty History of bilateral cataract extraction S/P trigger finger release History of tubal ligation Family History Father Past heart attack Mother Throat cancer Smoker Brother Past heart attack Brother Lung cancer Daughter Hypertension CHF (congestive heart failure) Son Diabetes Social History Housing: Apartment Alcohol intake: never Patient Tobacco Use Status: Never used Tobacco Tobacco use type: Cigarette e-Cigarette/Vaping Use: Never Used Second Hand Smoke Exposure: No service: No Current occupational status: disabled Cognitive needs: Yes Hearing needs: No Vision needs: No Questionnaire PHQ-9 Over the last 2 weeks, how often have you been bothered by any of the following problems? 1. Little interest or pleasure in doing things: not at all 2. Feeling down, depressed, or hopeless: several days 3. Trouble falling or staying asleep, or sleeping too much: not at all 4. Feeling tired or having little energy: several days 5. Poor appetite or overeating: not at all 6. Feeling bad about yourself - or that you are a failure or have let yourself or your family down: not at all 7. Trouble concentrating on things, such as reading the newspaper or watching television: not at all 8. Moving or speaking so slowly that other people could have noticed. Or the opposite - being so fidgety or restless that you have been moving around a lot more than usual: several days 9. Thoughts that you would be better off or of hurting yourself in some way: not at all Total score: 3 Depression Screening Interpretation: Positive Depression Screening Done: Yes 16587 - PHQ-9 Billing: Yes Source: Developed by Drs. Josh Mensah, Rebeca Caruso, Elan Akhtar and colleagues, with an educational ha from [employer]. Thrive Questionnaire Date Thrive assessed: 11/09/24 I am a: Patient What is your living situation today?: I have a steady place to live Within the past 12 months, did the food you bought not last and you didn't have the money to get more?: Sometimes True Within the past 12 months, did you worry whether your food would run out before you got money to buy more?: Sometimes True Do you have trouble paying for medicines?: No Do you have trouble getting transportation to medical appointments?: No Do you have trouble paying your heating and electricity bill?: No Do you have trouble taking care of your child, family member or friend?: I choose not to answer this question Do you have trouble with day-to-day activities such as bathing, preparing meals, shopping, managing finances, etc.?: Yes Are you currently unemployed and looking for a job?: Yes Are you interested in more education?: No Please select the resources that you would like help with: None Currently or been in a relationship where the following occur: No concerns reported THRIVE Score: 2 AUDIT C Alcohol Use Questionnaire (AUDIT-C) 1. How often do you have a drink containing alcohol?: Never Total Score: 0 KAI-7 AMB Questionnaire KAI-7 Date KAI - 7 assessed: 11/16/24 Feeling nervous, anxious, or on edge: 0 = Not at all Not being able to stop or control worryin = Not at all Worrying too much about different things: 1 = Several days Trouble relaxin = Not at all Being so restless that it is hard to sit still: 0 = Not at all Becoming easily annoyed or irritable: 1 = Several days Feeling afraid as if something awful might happen: 1 = Several days Total KAI-7 score (0-4 normal; 5-9 mild; 10-14 moderate; 15-21 severe): 3 Source: Developed by Drs. Josh Mensah, Rebeca Caruso, Elan Akhtar and colleagues, with an educational ha from [employer]. KAI-7 Assessment Billing KAI-7 Assessment Tool: KAI-7 Assessment 65309 Review of Systems Const Denies headache(s) Eyes Denies loss of vision ENT Denies vertigo, Denies dizziness, Denies headache(s) and Denies sore throat Card Denies chest pain, Denies leg edema and Denies lightheadedness Resp Denies cough, Denies hemoptysis and Denies wheezing GI Denies abdominal pain, Denies melena, Denies constipation, Denies diarrhea and D enies vomiting Denies urinary frequency, Denies dysuria and Denies urinary urgency Musc Denies arthralgias, Denies joint swelling, Denies numbness and Denies tingling Neuro Denies Abnormal speech present, Denies behavioral changes, Denies vertigo, Denies dizziness, Denies headache(s), Denies loss of vision, Denies memory loss, Denies numbness and Denies tingling Psych Denies anxiety, Denies behavioral changes, Denies depression, Denies memory loss and Denies panic attacks Irwin/Lymph Denies easy bleeding and Denies easy bruising Aller/Immun Denies wheezing Physical exam (Primary Care) Vital Signs: Last Vital Signs Temp 96.8 F 11/16/24 10:04 Pulse 57 11/16/24 10:04 BP 110/70 11/16/24 10:04 Pulse Ox 98 11/16/24 10:04 Oxygen Delivery Method Room Air 11/16/24 10:04 BMI result Body Mass Index 22.3 Tobacco/Smoking Status: Tobacco use Status Tobacco use date assessed 11/16/24 11/16/24 10:04 Patient Tobacco Use Status Never used Tobacco 11/16/24 10:04 Tobacco use type Cigarette 11/16/24 10:04 e-Cigarette/Vaping Use Never Used 11/16/24 10:04 PHQ-9: PHQ-9 Score PHQ-9: Total score 3 11/16/24 10:35 Depression Screening Interpretation: Positive Thrive Assessment: Date of Thrive Assessment Date Thrive assessed 11/09/24 11/16/24 10:04 Currently or been in a relationship where the following occur: No concerns reported Const General: healthy appearing, no acute distress, alert and awake Nutritional Appearance: well nourished Orientation/consciousness: oriented to person, oriented to place and oriented to time HENMT Ears: TM's normal bilaterally General nose exam: Normal nasal mucous membranes and turbinates present Eyes Conjunctivae: conjunctivae normal Sclerae: sclerae normal Pupils: Equal, round and reactive pupils present Neck Neck: Yes no lymphadenopathy and Yes no JVD Thyroid: Thyroid normal Carotids: no bruits Resp Effort & Inspection: normal respiratory effort and not tachypneic Auscultation: no crackles, no rales, no rhonchi and no wheezes Cardio Rate: regular rate Rhythm: regular rhythm Heart sounds: no murmurs and normal S1 and S2 GI Palpation (GI): Soft to palpation, nontender, no hepatomegaly and no splenomegaly Auscultation: normal bowel sounds Skin General skin exam: no rashes or lesions noted and dry skin Neuro General: oriented to person, oriented to place and oriented to time Cranial nerves: Yes Equal, round and reactive pupils present Speech: No Abnormal speech present Gait exam (Neuro): Normal gait present Motor exam (neuro): no tremor noted Extrem Right upper extremity: full ROM Left upper extremity: full ROM Right lower extremity: full ROM; no edema Left lower extremity: full ROM; no edema Psych Mental Status: mental status grossly normal Speech and movement: Normal speech and movement present Affect: normal affect Attitude: cooperative Thought process: Normal thought process present Coding Level of Care Code Est Pt Level 4 (05404) Diagnoses Type 2 diabetes mellitus with hyperglycemia, with long-term current use of insulin E11.65; Z79.4 Diabetes mellitus complication status: with hyperglycemia Diabetes mellitus termite exterminator helper insulin use: with termite exterminator helper use B12 deficiency E53.8 Primary hypertension I10 Hypertension type: primary hypertension Coronary artery disease involving [place] coronary artery of [place] heart without angina pectoris I25.10 Associated angina: without angina Coronary Disease-Associated Artery/Lesion type: [place] artery [place] vs. transplanted heart: [place] heart Mixed hyperlipidemia E78.2 Hyperlipidemia type: mixed hyperlipidemia Additional Codes PHQ-9 - 28495 - PHQ-9 Billing: Yes ([id number]) KAI-7 Assessment Billing - KAI-7 Assessment Tool: KAI-7 Assessment 81542 ([id number]) Assessment & Plan Assessment & Plan (1) DMII (diabetes mellitus, type 2): Code(s): E11.9 - Type 2 diabetes mellitus without complications Category: Medical Qualifiers: Diabetes mellitus complication status: with hyperglycemia Diabetes mellitus mcc insulin use: with mcc use Qualified Code(s): E11.65 - Type 2 diabetes mellitus with hyperglycemia; Z79.4 - intermission coordinator (current) use of insulin Plan: Patient's type 2 diabetes well suboptimally controlled with current dose of metformin and Farxiga. Today's A1c at 8.7 . Does have insulin available to her though has not been using until blood sugars are her around 300. Has also been working on dietary modifications. Goal A1c is to be below 7.5. Will try to set patient up with a [employer] Jerilyn 3 for ease of checking her blood sugars (2) B12 deficiency: Code(s): E53.8 - Deficiency of other specified B group vitamins Category: Medical Plan: Most recent B12 and folate levels checked were normal. She continues on p.o. supplementation of B12. (3) Hypertension: Code(s): I10 - Essential (primary) hypertension Category: Medical Qualifiers: Hypertension type: primary hypertension Qualified Code(s): I10 - Essential (primary) hypertension Plan: Patient's blood pressure acceptable today in office. Will continue on her current dose metoprolol. Cardiology is continuing patient on entresto , Aldactone and Farxiga for her Congestive heart failure with reduced ejection fraction. Most recent potassium normalized No overt signs of Congestive heart failure at physical exam at this point. (4) CAD (coronary artery disease): Code(s): I25.10 - Atherosclerotic heart disease of [place] coronary artery without angina pectoris Category: Medical Qualifiers: Associated angina: without angina Coronary Disease-Associated Artery/Lesion type: [place] artery [place] vs. transplanted heart: [place] heart Qualified Code(s): I25.10 - Atherosclerotic heart disease of [place] coronary artery without angina pectoris Plan: As per HPI patient is followed by Cardiology at [facility]. Does have an ICD placed Optimal LDL to be below 70 (5) HLD (hyperlipidemia): Code(s): E78.5 - Hyperlipidemia, unspecified Category: Medical Qualifiers: Hyperlipidemia type: mixed hyperlipidemia Qualified Code(s): E78.2 - Mixed hyperlipidemia Plan: Most recent lipid panel showing good control over total cholesterol and LDL. She will continue simvastatin 40 mg with goal optimal LDL to be below 70 Orders: Orders Vitamin B12 and Folate Today E53.8 - Deficiency of other specified B group vitamins Complete Blood Count no Diff Today E53.8 - Deficiency of other specified B group vitamins Lipid Panel Today I25.10 - Atherosclerotic heart disease of [place] coronary artery without angina pectoris Microalbumin, Random (w Creat) Today I10 - Essential (primary) hypertension Comprehensive [place]. 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
[2024-11-16 10:04] VITALS: BP 110/70; PULSE 57; TEMP 36; O2SAT 98; BMI 22.3
--- OUTSIDE RECORDS SUMMARY | 2024-11-16 11:18 | XMS_ITS | Clinical Summary ---
Author Organization [facility] Address [address] [address] Phone Care Team Providers Care Digital Measurement Advisor Name Role Phone Que Good Primary Care Provider [phone] Allergies Active Allergy Reactions Criticality Noted Date [...] Replace Required Details, Route to Pharmacy Electronically, [facility]/pharmacy #[id number], dose increase, 150, cm, 08/12/24 9:07:00 [...] Office Communication [facility] [address] [address] Bryson Navarro MD 08/22/2024 Office Communication [facility] [address] [address] Bryson Navarro MD 08/17/2024 3:00 PM EDT Office Visit [facility] [address] [place] [address] Bryson Navarro MD Stage 3b chronic kidney [...] Visit [facility] the [address] [place] [address] Bryson Navarro MD [address] [facility] [address] [place] [address] Health Maintenance Due Date Last Done [...] patient's age to complete this topic Insurance [facility] ([id number]) [facility] ([id number]) Care Teams Digital Measurement Advisor Relationship Specialty Start Date End Date Que Good PA [address] [facility], [address] [place] [address] PCP - General Physician Microwave Radio Technician 08/14/21
--- OUTSIDE RECORDS SUMMARY | 2024-11-16 11:19 | XMS_ITS | Patient Health Record ---
Author Organization [facility] Billing Info Address [address] [place] [address] Care Team Providers Care Eyeglass Inspector Name Role Phone PURVI LUCAS Unavailable [phone] Tremayne Hatch Unavailable Unavailable Reason For Referral No Information Plan Of Treatment No Information Insurance Providers Payer Name Payer Address Payer Phone Subscriber Number Group Number Insured Name Patient Relationship to Insured Coverage Start Date Coverage End Date [facility] NON HMO [address] [address] [facility] [place] [place] [id number] [phone] [id number] [facility] [employer] Shabana Baron Self - patient is the insured 8 [facility] PSN [facility] CHOICE [address] [place], [place] [id number] Shabana Baron Self - patient is the insured
--- OUTSIDE RECORDS SUMMARY | 2024-11-16 11:19 | XMS_ITS | Encounter Summary ---
Author Organization [facility] Address [address] [address] Phone Care Team Providers Care Unit Receptionist Name Role Phone Que Good Primary Care Provider [phone] Encounter Details Date Type Department Care Team (Late st Contact Info) Description 08/22/2024 Office Communication [facility] [address] [facility] [address] [place] [address] Bryson Navarro MD [address] [address] Social History Tobacco Use Types [...] Office Visit [facility] [address] [place] [address] Bryson Navarro MD [address] [address] documented as of this encounter Visit Diagnoses Not on filedocumented in this encounter Care Teams Unit Receptionist Relationship Specialty Start Date End Date Que Good PA [address] [place] [address], [address] [place], [place] [id number] PCP - General Physician Hand Trucker 08/14/21 documented as of this encounter
--- OUTSIDE RECORDS SUMMARY | 2024-11-16 11:19 | XMS_ITS | Patient Health Record ---
Author Organization [facility] Address [address] [facility] [place] [address] Care Team Providers Care Static Balancer Name Role Phone Que Good Primary Care Provider Unavailab Ashlee Tomlin Unavailable [phone] Allergies Allergen (clinical drug ingredient) Drug/Non Drug [...] persists Sublingual Three times a day Active Dailey 3 Active Lantus SoloStar 100 UNIT/ML as [...] Polyneuropathy due to type 2 diabetes mellitus ([id number]) Type 2 diabetes mellitus with diabetic polyneuropathy (E11.42) Active confirmed Vital Signs Blood pressure diastolic 65 mm Hg 10/29/2024 Height 4 ft 6in in 10/29/2024 Blood pressure systolic 128 mm Hg 10/29/2024 Weight 93 lbs 10/29/2024 BMI 22.42 kg/m2 10/29/2024 Procedures Procedure Date Ordered Date Performed Result Body Sit e 16780-ZKGRGRM NAIL, 6 OR MORE 10/29/2024 N/A 92270-STOU SKIN LESIONS, 2 TO 4 10/29/2024 N/A Encounters Encounter Location Date Provider Diagnosis [facility] [place] [address] [place] [address] 10/29/2024 Ashlee Dan Type 2 diabetes mellitus [...] Treatment Pending Test Test Name Order Date [id number] NAIL, 6 OR MORE 10/29/2024 93201-XHMD SKIN LESIONS, 2 TO 4 10/30/19 25 Next Appt Details Provider Name:Ashlee Heredia kevin, 02/01/2025 09:30:00 AM, [address] [place], [address], Insurance Providers Payer Name Payer Address Payer Phone Subscriber Number Group Number Insured Name Patient Relationship to Insured Coverage Start Date Coverage End Date [facility] SCO Claims [address] [place] [phone] [id number] Colon, Shabana Self - patient is the insured Medical (General) History Medical History History ICD Code Anemia Arthritis asthma Back,Hip,and Knee pain Diabetic Headaches/Migraines Heart disease Kidney disease Osteoporosis Pacemaker Surgical History Surgery Date(Month/Year) cardiac pacemeker 10/2017
== END 2024-11-16 11:01 | disposition home or self-care (01) ==
LOC: HO.HMCH 09:47
PROVIDERS: PCP Physician Assistant; Visit Provider Physician Assistant
DX: E11.65 Type 2 diabetes mellitus with hyperglycemia (principal); Z79.4 Long term (current) use of insulin; E53.8 Deficiency of other specified B group vitamins; I10 Essential (primary) hypertension; I25.10 Atherosclerotic heart disease of native coronary artery without angina pectoris; E78.2 Mixed hyperlipidemia

== ENCOUNTER → 2024-11-16 09:46 | Outpatient (BNVA) | payer OTHER, SELFPAY | PROVIDERS: PCP Physician Assistant; Visit Provider Physician Assistant | DX: Z00.00 Encounter for general adult medical examination without abnormal findings (principal); E87.5 Hyperkalemia; M47.816 Spondylosis without myelopathy or radiculopathy, lumbar region; I10 Essential (primary) hypertension; I25.10 Atherosclerotic heart disease of native coronary artery without angina pectoris; E11.65 Type 2 diabetes mellitus with hyperglycemia; E53.8 Deficiency of other specified B group vitamins; E78.2 Mixed hyperlipidemia; M15.3 Secondary multiple arthritis; R26.89 Other abnormalities of gait and mobility; Z79.4 Long term (current) use of insulin | CPT/HCPCS: 96127; 99212 ==

== ENCOUNTER 2024-12-07 09:18 | Outpatient (REF) | payer OTHER, SELFPAY ==
--- NOTE | ~2024-12-07 | MM_ITS ---
EXAMINATION: MM SCREENING DIGITAL BREAST TOMOSYNTHESIS, BILATERAL CLINICAL INFORMATION: Screening. Asymptomatic. COMPARISON: Mammography: Comparison is made with available priors TECHNIQUE: Digital breast mammography with tomosynthesis is performed in both the craniocaudal and mediolateral oblique views along with computer-aided detection (CAD). FINDINGS: There are scattered areas of fibroglandular density. Pacemaker overlies and obscures the superior posterior left breast on MLO view. There are no significant masses, abnormal calcifications, or other abnormalities. MM/MM tomosynthesis screening BI IMPRESSION: No mammographic evidence of malignancy. ASSESSMENT: BI-RADS Category 2: Benign RECOMMENDATION: Routine annual mammography screening. 1 year F/U This examination should not preclude the clinical evaluation of a suspicious palpable abnormality. This patient's information was entered into a reminder system with a target due date for their next mammogram. Electronically signed by: Cheryle Goldberg DO 12/08/2024 03:25 PM EDT
--- OUTSIDE RECORDS SUMMARY | 2024-12-07 10:02 | XMS_ITS | Patient Health Record ---
Author Organization [facility] Address [address] [place] [address] Care Team Providers Care Drum Stock Clerk Name Role Phone Que Good Primary Care Provider Unavailab Ashlee Tomlin Unavailable [phone] Allergies Allergen (clinical drug ingredient) Drug/Non Drug [...] persists Sublingual Three times a day Active Draper 3 Active Lantus SoloStar 100 UNIT/ML as [...] Polyneuropathy due to type 2 diabetes mellitus (810877684) Type 2 diabetes mellitus with diabetic polyneuropathy (E11.42) Active confirmed Vital Signs Blood pressure diastolic 65 mm Hg 10/29/2024 Height 4 ft 6in in 10/29/2024 Blood pressure systolic 128 mm Hg 10/29/2024 Weight 93 lbs 10/29/2024 BMI 22.42 kg/m2 10/29/2024 Procedures Procedure Date Ordered Date Performed Result Body Sit e 31788-UOEEEHK NAIL, 6 OR MORE 10/29/2024 N/A 08892-TZTG SKIN LESIONS, 2 TO 4 10/29/2024 N/A Encounters Encounter Location Date Provider Diagnosis [facility] [place] [address] [place] [address] 10/29/2024 Ashlee Dan Type 2 diabetes mellitus [...] Treatment Pending Test Test Name Order Date [id number] NAIL, 6 OR MORE 10/29/2024 67194-ASGX SKIN LESIONS, 2 TO 4 10/30/19 25 Next Appt Details Provider Name:Ashlee Heredia kevin, 02/01/2025 09:30:00 AM, [address] [place], [address], Insurance Providers Payer Name Payer Address Payer Phone Subscriber Number Group Number Insured Name Patient Relationship to Insured Coverage Start Date Coverage End Date [facility] SCO Claims [address] [place] [phone] [id number] Colon, Shabana Self - patient is the insured Medical (General) History Medical History History ICD Code Anemia Arthritis asthma Back,Hip,and Knee pain Diabetic Headaches/Migraines Heart disease Kidney disease Osteoporosis Pacemaker Surgical History Surgery Date(Month/Year) cardiac pacemeker 10/2017
--- OUTSIDE RECORDS SUMMARY | 2024-12-07 10:02 | XMS_ITS | Clinical Summary ---
Author Organization [facility] Address [address] [place] [phone] Phone Care Team Providers Care Diversified Crops Supervisor Name Role Phone Que Good Primary Care Provider [phone] Allergies Active Allergy Reactions Criticality Noted Date Comments Iodinated Contrast Media Itching,Other (see comments) High 12/25/2017 Medications simvastatin (ZOCOR) 40 MG tablet 01/16/20 23 Active metFORMIN (GLUCOPHAGE) 1000 MG tablet TOME LADAN TABLETA DOS VECES AL D A WITH FOOD 11/10/19 23 Active Lantus SoloStar 100 UNIT/ML injection INJECT 44 UNITS SUBCUTANEOUSLY EVERY MORNING FOR 30 DAYS 01/12/20 23 Active Aspirin Low Dose 81 MG EC tablet TOME LADAN TABLETA TODOS LOS D 11/07/19 23 Active acetaminophen (TYLENOL 8 HOUR) 650 MG 8 hr tablet Take 650 mg by mouth Active metoprolol succinate XL (TOPROL XL) 25 MG 24 hr tablet TAKE 1/2 TABLET (12.5 MG) BY MOUTH FOR 90 DAYS 12/28/19 24 Active albuterol HFA (ProAir HFA) 108 (90 Base) MCG/ACT inhaler Inhale 03/24/19 19 Active Entresto 24-26 MG per tablet Take [...] WITHIN 2 HOURS OF OTHER MEDICATIONS Active spironolacton e (ALDACTONE) 25 MG tablet See Instructions, 1 tablet By Mouth Daily, # 30 tablet, Refills 5, Tot. Refills 5, Maintenance, 08/12/24 9:18:00 AM EDT, Instructions Replace Required Details, Route to Pharmacy Electronically, [facility]/pharmacy #[id number], dose increase, 150, cm, 08/12/24 9:07:00 EDT, Height 07/28/19 Active calcitriol (ROCALTROL) 0.25 MCG capsule TAKE 1 CAPSULE BY MOUTH EVERY OTHER DAY 45 capsule 11/21/19 25 Active calcitriol (Rocaltrol) 0.25 MCG capsule Take 1 capsule (0.25 mcg total) by mouth every other day 45 capsule 08/23/19 25 2024 Discontinued Active Problems Problem Noted Date Diagnosed Date [...] Encounters Date Type Department Care Team Description 11/20/2024 Refill [facility] [address] [phone] Bryson Navarro MD from Last 3 Months [...] Visit [facility] [address] [place] [address] [place] [address] Bryson Navarro MD [address] 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
--- OUTSIDE RECORDS SUMMARY | 2024-12-07 10:02 | XMS_ITS | Encounter Summary ---
Author Organization [facility] Address [address] [address] Phone Care Team Providers Care Government Minister Name Role Phone Que Good Primary Care Provider [phone] Encounter Details Date Type Department Care Team (Late st Contact Info) Description 08/22/2024 Office Communication [facility] [address] [facility] [address] [place] [address] Bryson Navarro MD [address] [address] Social History Tobacco Use Types [...] Office Visit [facility] [address] [place] [address] Bryson Navarro MD [address] [address] documented as of this encounter Visit Diagnoses Not on filedocumented in this encounter Care Teams Government Minister Relationship Specialty Start Date End Date Que Good PA [address] [place] [address], [address] [place], [place] [id number] PCP - General Physician Programming Manager 08/14/21 documented as of this encounter
--- OUTSIDE RECORDS SUMMARY | 2024-12-07 10:02 | XMS_ITS | Patient Health Record ---
Author Organization [facility] Billing Info Address [address] [place] [id number] Care Team Providers Care Starch Dumper Name Role Phone PURVI LUCAS Unavailable [phone] Tremayne Hatch Unavailable Unavailable Reason For Referral No Information Plan Of Treatment No Information Insurance Providers Payer Name Payer Address Payer Phone Subscriber Number Group Number Insured Name Patient Relationship to Insured Coverage Start Date Coverage End Date [facility] NON HMO [address] [address] [facility] [place] [id number] [facility] Shabana Baron Self - patient is the insured 8 [facility] [address] [place], [place] [phone] [id number] Shabana Baron Self - patient is the insured
== END 2024-12-07 09:19 | disposition home or self-care (01) ==
LOC: HO.MAMMO 09:18
PROVIDERS: PCP Physician Assistant; Visit Provider Physician Assistant
DX: Z12.31 Encounter for screening mammogram for malignant neoplasm of breast (principal)
CPT/HCPCS: 77063; 77067

== ENCOUNTER → 2024-12-07 09:30 | Outpatient (BNV) | payer OTHER, SELFPAY | PROVIDERS: PCP Physician Assistant; Visit Provider Internal Medicine | DX: Z12.31 Encounter for screening mammogram for malignant neoplasm of breast (principal) | CPT/HCPCS: 77063; 77067 ==

== ENCOUNTER 2025-02-10 07:47 | Outpatient (REF) | payer OTHER, SELFPAY ==
--- OUTSIDE RECORDS SUMMARY | 2025-02-10 07:50 | XMS_ITS | Clinical Summary ---
Author Organization [facility] Address [address] [address] Phone Care Team Providers Care Arbitrator Name Role Phone Que Good Primary Care Provider [phone] Allergies Active Allergy Reactions Criticality Noted Date [...] Replace Required Details, Route to Pharmacy Electronically, [facility]/pharmacy #[id number], dose increase, 150, cm, 08/12/24 9:07:00 EDT, Height 5 Active calcitriol (ROCALTROL) 0.25 MCG capsule TAKE 1 CAPSULE BY MOUTH EVERY OTHER DAY 45 capsule Active Active Problems Problem Noted Date Diagnosed [...] 11/20/2024 Refill [facility] [address] [address] Bryson Navarro MD from Last 3 Months [...] Visit [facility] [address] [place] [address] [place] [phone] Bryson Navarro MD [address] [facility] [address] [place] [address] Health Maintenance Due Date Last [...] patient's age to complete this topic Insurance * Guarantor: Shabana Baron Account Type Relation to Patient Date of Phone Billing Address Personal/Family Self 1945 [address] Krause [facility] ([id number]) [facility] ([id number]) JEANNINE SAAVEDRA [id number] Care Teams Arbitrator Relationship Specialty Start Date End Date Que Good PA [address] [place] [address], [address] [place] [address] PCP - General Physician Baker Chef 08/14/21
[2025-02-10 08:13] LABS: MANUAL DIFF FLAG NO
[2025-02-10 09:19] LABS: Hematocrit 35.3 % (37.0-47.0); Hemoglobin 11.0 g/dl (12.0-16.0); Imm Gran Abs Auto 0.01 X10*3/uL (0.00-0.03); Imm Gran Pct Auto 0.2 % (0.0-0.4); Lymphocytes Absolute Auto 2.2 X10*3/uL (1.2-4.9); Mean Corpuscular HGB Conc 31.2 g/dl (31.0-35.0); Mean Corpuscular Hemoglobin 27.8 pg (27.0-33.0); Mean Corpuscular Volume 89.4 fL (80.0-98.0); NRBC Abs Auto 0.000 X10*3/uL (0.0-0.012); NRBC Pct Auto 0.0 /100WBC (0.0-0.2); Platelet Count 202 X10*3/uL (160-400); Red Blood Count 3.95 X10*6/uL (4.20-5.50); White Blood Count 4.4 X10*3/uL (4.8-10.8)
[2025-02-10 09:34] LABS: Appearance Urine Clear; Glucose Urine UA >=1000 mg/dL (Negative); PH 5.0 (5.0-9.0); Specific Gravity - Urine >= 1.030 (1.005-1.025); UMIC TRIGGER UA YES
[2025-02-10 09:48] LABS: Parathyroid Hormone Intact 241.0 pg/mL (8.7-77.1)
[2025-02-10 09:54] LABS: Albumin Level 4.6 g/dL (3.5-5.0); Anion Gap 13 (12-20); Blood Urea Nitrogen 20 mg/dL (9-16); Calcium 9.5 mg/dL (8.4-10.2); Carbon Dioxide 25 mmol/L (22-29); Chloride 110 mmol/L (96-108); Magnesium 1.7 mg/dL (1.6-2.6); Potassium 4.5 mmol/L (3.3-5.1); Sodium 143 mmol/L (135-145)
[2025-02-10 09:54] LABS: Microalbum/Creatinine Ratio Ur 45.2 ug/mg cr (<30); Protein/Creatinine Ratio, Ur 0.16 (<0.2); Total Protein Urine Random 19 mg/dL (<12)
== END 2025-02-10 07:48 | disposition home or self-care (01) ==
LOC: HO.LAB 07:47
PROVIDERS: PCP Physician Assistant; Visit Provider Internal Medicine Nephrology
DX: E11.22 Type 2 diabetes mellitus with diabetic chronic kidney disease (principal); N18.32 Chronic kidney disease, stage 3b; N25.0 Renal osteodystrophy
CPT/HCPCS: 36415; 80069; 81001; 82043; 82306; 82570; 83735; 83970; 84156; 85025